=== PATIENT | female | born 1955 | race American Indian/Alaskan Native ===

== ENCOUNTER 2021-01-07 12:49 | Inpatient (IN) | payer MEDICARE ==
[2021-01-07] MEDS ORDERED: NALOXONE 2 MG/2 ML INJ IV ONE (13:22)
--- NOTE | 2021-01-07 13:54 | Emergency Department Report ---
ED Altered Mental Status HPI - General Chief Complaint: Altered Mental Status Stated Complaint: HYPERGLYCEMIA, AMS Time Seen by Provider: 01/07/21 13:03 Source: EMS Mode of arrival: Ambulatory Limitations: No Limitations - History of Present Illness Initial Comments: 65-year-old female, history of chronic back pain, COPD (O2 at night), diabetes, hypertension, presents to ED with altered mental status at approximately 4 AM this morning. Last known well time at 8:30 PM last night. Daughter states patient has been lethargic today. States at 4 AM her son went to the bathroom and noticed that his grandmother was sitting on the stool instead of in the bed. Daughter states this is unusual for her. She states all day today she has been confused, lethargic, slow to answer questions. Daughter states patient has history of chronic back pain. She normally takes hydrocodone 10/325 TID a day along with gabapentin. Daughter reports 3 days ago patient's pain management physician restarted patient on morphine BID. She also reports patient takes Am julia at night. Daughter reports that they recently returned from [place] from spring vacation on Tuesday, 3 days ago. States patient was fine while on vacation. Daughter called EMS because she thought patient's glucose may be off. Glucose is normal. Patient is lethargic. She is arousable to painful stimuli. Patient is intermittently alert. When I told the nurse that we should give Na rcan, thought patient was asleep, however she responded no. When I was speaking to the daughter about all of the medications that patient is taking, I commented that patient may be too old to handle all of these sedating medications. Again, I thought patient was asleep, however patient responded, "Too old?!" When I asked patient what year it is, she responds, "19....," then drifts back off to s lee. Patient is received 2nd dose of [employer] vaccine for COVID-19 1 week ago. Complaint: altered mental status -: This morning Severity: moderate Consistency of Symptoms: waxing and waning Context: change in medication, diabetes, COPD Associated Symptoms: weakness. denies: cough, fever/chills, nausea/vomiting, shortness of breath, diarrhea ED Review of Systems ROS: Stated complaint: HYPERGLYCEMIA, AMS Other details as noted in HPI Comment: All other systems reviewed and negative Constitutional: denies: chills, fever Respiratory: denies: cough Gastrointestinal: denies: abdominal pain, vomiting, diarrhea ED Past Medical Hx - Past Medical History Previous Medical History?: Yes Hx Hypertension: Yes Hx Arthritis: Yes Hx Asthma: Yes - Surgical History Past Surgical History?: No - Social History Smoking Status: Former Smoker Substance Use Type: None ED Physical Exam - General Limitations: No Limitations General appearance: lethargic - Head Head exam: Present: atraumatic, normocephalic - Eye Eye exam: Present: normal appearance, EOMI - ENT ENT exam: Present: mucous membranes moist - Neck Neck exam: Present: normal inspection - Respiratory Respiratory exam: Present: wheezes - Cardiovascular Cardiovascular Exam: Present: regular rate, normal rhythm - GI/Abdominal GI/Abdominal exam: Present: soft. Absent: distended, tenderness - Extremities Exam Extremities exam: Present: normal inspection - Neurological Exam Neurological exam: Present: altered - Psychiatric Psychiatric exam: Present: normal affect, normal mood - Skin Skin exam: Present: warm, dry, intact, normal color ED Course Vital Signs 01/07/21 01/07/21 01/07/21 13:21 13:38 15:56 Temperature 98.1 F Pulse Rate 77 87 Pulse Rate [ Anterior Bilateral Throughout] Respiratory 18 18 Rate Respiratory Rate [Anterior Bilateral Throughout] Blood Pressure 179/54 Blood Pressure 179/54 [Right] O2 Sat by Pulse 100 100 Oximetry 01/07/21 01/07/21 01/07/21 16:01 16:15 16:31 Temperature Pulse Rate 71 73 77 Pulse Rate [ Anterior Bilateral Throughout] Respiratory 17 17 15 Rate Respiratory Rate [Anterior Bilateral Throughout] Blood Pressure 180/71 158/68 Blood Pressure [Right] O2 Sat by Pulse 99 99 94 Oximetry 01/07/21 01/07/21 01/07/21 16:45 17:00 17:15 Temperature Pulse Rate 79 74 76 Pulse Rate [ Anterior Bilateral Throughout] Respiratory 16 17 15 Rate Respiratory Rate [Anterior Bilateral Throughout] Blood Pressure 180/71 172/77 158/68 Blood Pressure [Right] O2 Sat by Pulse 80 L 100 100 Oximetry 01/07/21 01/07/21 01/07/21 17:31 17:49 17:51 Temperature Pulse Rate 77 Pulse Rate [ 79 Anterior Bilateral Throughout] Respiratory 13 Rate Respiratory 20 Rate [Anterior Bilateral Throughout] Blood Pressure 158/68 Blood Pressure [Right] O2 Sat by Pulse 100 100 Oximetry - Lab Data Result diagrams: 01/07/21 14:14 01/07/21 14:14 Lab Results 01/07/21 01/07/21 01/07/21 Range/Units 13:19 14:14 14:14 WBC 12.6 H (4.5-11.0) K/mm3 RBC 4.49 (3.65-5.03) M/mm3 Hgb 12.5 (10.1-14.3) gm/dl Hct 39.1 (30.3-42.9) % MCV 87 (79-97) fl MCH 28 (28-32) pg MCHC 32 (30-34) % RDW 15.0 (13.2-15.2) % Plt Count 228 (140-440) K/mm3 Lymph % (Auto) 17.0 (13.4-35.0) % Nelson % (Auto) 3.9 (0.0-7.3) % Eos % (Auto) 0.1 (0.0-4.3) % Baso % (Auto) 0.5 (0.0-1.8) % Lymph # (Auto) 2.1 (1.2-5.4) K/mm3 Nelson # (Auto) 0.5 (0.0-0.8) K/mm3 Eos # (Auto) 0.0 (0.0-0.4) K/mm3 Baso # (Auto) 0.1 (0.0-0.1) K/mm3 Seg Neutrophils % 78.5 H (40.0-70.0) % Seg Neutrophils # 9.9 H (1.8-7.7) K/mm3 D-Dimer (0-234) ng/mlDDU ABG pH (7.320-7.450) POC ABG pCO2 (32.0-48.0) mmHg POC ABG pO2 (83-108) mmHg POC ABG HCO3 ABG O2 Saturation (0-100) POC ABG Base Excess ABG Hemoglobin (12.0-17.5) ABG Oxyhemoglobin (94-98) ABG Methemoglobin (0.0-1.5) ABG Sodium (136.0-145.0) mmol/L ABG Potassium (3.40-4.50) mmol/L ABG Chloride (98-107) mmol/L ABG Glucose (65-95) mg/dL Carboxyhemoglobin (0.5-1.5) FiO2 % Sodium 138 (137-145) mmol/L Potassium 4.9 (3.6-5.0) mmol/L Chloride 102.1 (98-107) mmol/L Carbon Dioxide 24 (22-30) mmol/L Anion Gap 17 mmol/L BUN 30 H (7-17) mg/dL Creatinine 1.1 (0.6-1.2) mg/dL Estimated GFR 60 ml/min BUN/Creatinine Ratio 27 % Glucose 110 H (65-100) mg/dL POC Glucose 185 H (70-105) mg/dL Calcium 9.2 (8.4-10.2) mg/dL Ferritin (10.0-200.0) ng/mL Lactate Dehydrogenase (91-180) units/L Troponin T (0.00-0.029) ng/mL C-Reactive Protein (0.00-1.30) mg/dL Arterial Blood Glucose (65-95) mg/dL Arterial Blood Ionized Calcium (4.6-5.3) mg/dL 01/07/21 01/07/21 01/07/21 Range/Units 14:14 14:17 15:39 WBC (4.5-11.0) K/mm3 RBC (3.65-5.03) M/mm3 Hgb (10.1-14.3) gm/dl Hct (30.3-42.9) % MCV (79-97) fl MCH (28-32) pg MCHC (30-34) % RDW (13.2-15.2) % Plt Count (140-440) K/mm3 Lymph % (Auto) (13.4-35.0) % Nelson % (Auto) (0.0-7.3) % Eos % (Auto) (0.0-4.3) % Baso % (Auto) (0.0-1.8) % Lymph # (Auto) (1.2-5.4) K/mm3 Nelson # (Auto) (0.0-0.8) K/mm3 Eos # (Auto) (0.0-0.4) K/mm3 Baso # (Auto) (0.0-0.1) K/mm3 Seg Neutrophils % (40.0-70.0) % Seg Neutrophils # (1.8-7.7) K/mm3 D-Dimer 724.01 H (0-234) ng/mlDDU ABG pH 7.318 L (7.320-7.450) POC ABG pCO2 54.5 H (32.0-48.0) mmHg POC ABG pO2 52.5 L (83-108) mmHg POC ABG HCO3 27.3 ABG O2 Saturation 88.3 (0-100) POC ABG Base Excess 0.3 ABG Hemoglobin 13.1 (12.0-17.5) ABG Oxyhemoglobin 83.7 L (94-98) ABG Methemoglobin 0.3 (0.0-1.5) ABG Sodium 138.0 (136.0-145.0) mmol/L ABG Potassium 4.7 H (3.40-4.50) mmol/L ABG Chloride 105.0 (98-107) mmol/L ABG Glucose 120 H (65-95) mg/dL Carboxyhemoglobin 4.9 H (0.5-1.5) FiO2 % 21.0 Sodium (137-145) mmol/L Potassium (3.6-5.0) mmol/L Chloride (98-107) mmol/L Carbon Dioxide (22-30) mmol/L Anion Gap mmol/L BUN (7-17) mg/dL Creatinine (0.6-1.2) mg/dL Estimated GFR ml/min BUN/Creatinine Ratio % Glucose (65-100) mg/dL POC Glucose (70-105) mg/dL Calcium (8.4-10.2) mg/dL Ferritin (10.0-200.0) ng/mL Lactate Dehydrogenase (91-180) units/L Troponin T < 0.010 (0.00-0.029) ng/mL C-Reactive Protein (0.00-1.30) mg/dL Arterial Blood Glucose 120 H (65-95) mg/dL Arterial Blood Ionized Calcium 4.9 (4.6-5.3) mg/dL 01/07/21 01/07/21 Range/Units 15:39 15:39 WBC (4.5-11.0) K/mm3 RBC (3.65-5.03) M/mm3 Hgb (10.1-14.3) gm/dl Hct (30.3-42.9) % MCV (79-97) fl MCH (28-32) pg MCHC (30-34) % RDW (13.2-15.2) % Plt Count (140-440) K/mm3 Lymph % (Auto) (13.4-35.0) % Nelson % (Auto) (0.0-7.3) % Eos % (Auto) (0.0-4.3) % Baso % (Auto) (0.0-1.8) % Lymph # (Auto) (1.2-5.4) K/mm3 Nelson # (Auto) (0.0-0.8) K/mm3 Eos # (Auto) (0.0-0.4) K/mm3 Baso # (Auto) (0.0-0.1) K/mm3 Seg Neutrophils % (40.0-70.0) % Seg Neutrophils # (1.8-7.7) K/mm3 D-Dimer (0-234) ng/mlDDU ABG pH (7.320-7.450) POC ABG pCO2 (32.0-48.0) mmHg POC ABG pO2 (83-108) mmHg POC ABG HCO3 ABG O2 Saturation (0-100) POC ABG Base Excess ABG Hemoglobin (12.0-17.5) ABG Oxyhemoglobin (94-98) ABG Methemoglobin (0.0-1.5) ABG Sodium (136.0-145.0) mmol/L ABG Potassium (3.40-4.50) mmol/L ABG Chloride (98-107) mmol/L ABG Glucose (65-95) mg/dL Carboxyhemoglobin (0.5-1.5) FiO2 % Sodium (137-145) mmol/L Potassium (3.6-5.0) mmol/L Chloride (98-107) mmol/L Carbon Dioxide (22-30) mmol/L Anion Gap mmol/L BUN (7-17) mg/dL Creatinine (0.6-1.2) mg/dL Estimated GFR ml/min BUN/Creatinine Ratio % Glucose (65-100) mg/dL POC Glucose (70-105) mg/dL Calcium (8.4-10.2) mg/dL Ferritin 84.1 (10.0-200.0) ng/mL Lactate Dehydrogenase 252 H (91-180) units/L Troponin T (0.00-0.029) ng/mL C-Reactive Protein 1.70 H (0.00-1.30) mg/dL Arterial Blood Glucose (65-95) mg/dL Arterial Blood Ionized Calcium (4.6-5.3) mg/dL - EKG Data -: EKG Interpreted by Me EKG shows normal: sinus rhythm, axis, intervals, QRS complexes Rate: normal Interpretation: nonspecific ST-T wave jose francisco - Radiology Data Radiology results: report reviewed, image reviewed - Medical Decision Making 65-year-old male presents to ED with altered mental status. Last known well time was last night around 8:30 PM. Daughter states patient has been lethargic all day. Thought her mental status may be related to her diabetes, so EMS was called. Accu-Chek is normal. Daughter reports patient recently restarted p.o. morphine for her chronic pain. Narcan was given here in the ED, however, no improvement in mental status. Patient is arousable, will follow commands, but quickly dozes off again. No focal neuro deficits on exam. Patient has no drift in her extremities, no facial droop present, speech is normal. ABG shows slight elevation in CO2 of 54, however it is unclear if her encephalopathy is related to this, as her encephalopathy seems somewhat out of proportion to her CO2 elevation. O2 sats is 88%. Patient placed on 2 L O2. Chest x-ray does show bilateral pneumonia. Blood cultures drawn, antibiotics given. Patient received her second COVID-19 vaccine dose last week prior to going on vacation with her family for spring. COVID-19 markers drawn, test ordered. Patient will be admitted to Dr. Johnson, hospitalist, for further management. - Differential Diagnosis CO2 narcosis, opioid overdose, UTI, pneumonia, hypoglycemia Critical care attestation.: If time is entered above; I have spent that time in minutes in the direct care of this critically ill patient, excluding procedure time. ED Disposition Clinical Impression: Acute encephalopathy, Pneumonia, Suspected COVID-19 virus infection, Acute respiratory failure with hypoxia and hypercapnia Disposition: OP ADMIT IP TO THIS HOSP Is pt being admited?: Yes Condition: Stable Time of Disposition: 16:52
--- NOTE | 2021-01-07 14:22 | XRay Report ---
Chest and oblique INDICATION: Dyspnea IMPRESSION: Severe airspace disease projects over the right mid and lower lung suspicious for pneumon ia. Left lung is grossly clear. Close follow-up recommended. Signer Name: Checo Lawton MD Signed: 01/07/2021 2:17 PM Workstation Name: [id number]
[2021-01-07 14:42] LABS: Basophils # (Auto) 0.1 K/mm3 (0.0-0.1); Basophils % (Auto) 0.5 % (0.0-1.8); Eosinophils % (Auto) 0.1 % (0.0-4.3); Hematocrit 39.1 % (30.3-42.9); Hemoglobin 12.5 gm/dl (10.1-14.3); Lymphocytes # (Auto) 2.1 K/mm3 (1.2-5.4); Mean Corpuscular HGB Conc 32 % (30-34); Mean Corpuscular Volume 87 fl (79-97); Monocytes # (Auto) 0.5 K/mm3 (0.0-0.8); Monocytes % (Auto) 3.9 % (0.0-7.3); Platelet Count 228 K/mm3 (140-440); Red Blood Count 4.49 M/mm3 (3.65-5.03)
[2021-01-07 15:10] LABS: Calcium 9.2 mg/dL (8.4-10.2)
[2021-01-07] MEDS ORDERED: cefTRIAXone/NS 1 GM/50 ML 1 GM/50 ML BAG IV ONE (15:11)
[2021-01-07] MEDS ORDERED: AZITHROMYCIN/NS 500 MG/250 ML 500 MG/250 ML BAG IV ONE (15:12)
[2021-01-07] MEDS ORDERED: dexAMETHasone 4 MG/ML VIAL IV ONE (15:12)
--- NOTE | 2021-01-07 15:59 | Cat Scan Report ---
CT HEAD WITHOUT CONTRAST INDICATION / CLINICAL INFORMATION: AMS. TECHNIQUE: Axial imaging performed from the skull apex through the skull base without the use of cont rast. Sagittal and coronal reformatted images. All CT scans at this location are performed using CT dose reduction for ALARA by means of automated exposure control. COMPARISON: None available. FINDINGS: There is moderate artifact secondary to a left ear piercing. CEREBRAL PARENCHYMA: No significant abnormality. No acute territorial infarct. HEMORRHAGE: None. EXTRA-AXIAL SPACES: Normal in size and morphology for the patient's age. VENTRICULAR SYSTEM: Normal in size and morphology for the patient's age. MIDLINE SHIFT OR HERNIATION: None. CEREBELLUM / BRAINSTEM: No significant abnormality. CALVARIUM: No significant abnormality. ORBITS: Normal as visualized. PARANASAL SINUSES / MASTOID AIR CELLS: Normal as visualized. SOFT TISSUES of HEAD: No significant abnormality. ADDITIONAL FINDINGS: None. IMPRESSION: No acute intracranial abnormality. Signer Name: Lang Moser Jr, MD Signed: 01/07/2021 3:43 PM Workstation Name: [id number]
[2021-01-07 16:09] LABS: C-Reactive Protein 1.7 mg/dL (0.00-1.30)
[2021-01-07] MEDS ORDERED: IPRATROPIUM 0.02% NEBU 2.5 ML IH ONE (16:38)
[2021-01-07] MEDS ORDERED: ALBUTEROL 2.5 MG/3 ML NEBU IH ONE (16:38)
[2021-01-07] MEDS ORDERED: ALBUTEROL 2.5 MG/3 ML NEBU IH PRN (16:52)
[2021-01-07] MEDS ORDERED: ONDANSETRON 4 MG/2 ML INJ IV PRN (16:52)
[2021-01-07 16:57] LABS: Bacteria,Urine 1+ /HPF (Negative); Bilirubin,Urine NEG (Negative); Blood,Urine NEG (Negative); Color,Urine Yellow (Yellow); Mucus,Urine FEW /HPF; Protein,Urine <15 mg/dL mg/dL (Negative); Urobilinogen,Urine < 2.0 mg/dL (<2.0); WBC,Urine < 1.0 /HPF (0.0-6.0)
--- NOTE | 2021-01-07 16:57 | History and Physical Report ---
History of Present Illness Chief complaint: She is confused and not acting like herself History of present illness: 65 YO Female with obesity hypoventilation syndrome, COPD, diabetes mellitus, hypertension, osteoarthritis, mild intermittent asthma presented to ED for evaluation. Patient is confused with diminished cognition and is unable to provide history. Patient history taken from EMS staff, ED staff, as well as patient family who was at bedside during exam and interview. As per family the patient has experienced increased confusion over the past 1 day with persistent symptoms over the same timeframe. EMS was notified and upon arrival the patient was found to be in distress and subsequently transported to [facility] for further care and evaluation of the aforementioned symptoms. The patient was seen and jay luated in the emergency department. All lab and imaging studies reviewed. The patient was found to have a pulse oximetry of 87% on room air which is consistent with acute hypoxemic respiratory failure. The patient was placed on supplemental oxygen with mild improvement in symptoms. Chest x-ray revealed bilateral pneumonia. Patient initiated on pneumonia protocol as well as coronavirus protocol in the emergency department. Patient found to have encephalopathy, systemic inflammatory response syndrome as well as super suspected coronavirus infection. Patient admitted to medical floor due to increased risk of worsening symptoms. No reports of fever, chills, chest pain, palpitations, productive cough, skin rash, recent ill contacts. Patient is fully vaccinated with [employer] vaccine for coronavirus. Patient is confused and lethargic at the time of my evaluation and is unable to provide history but has a positive gag reflex and is able to protect her airway without difficulty at this time. No prior admission for review. No medication listed at time of admission for reconciliation. Advanced care planning conducted in ED. Past History Past Medical History: arthritis, COPD, diabetes, hypertension, other (See HPI) Past Surgical History: No surgical history, Other (Reviewed) Social history: . denies: smoking, alcohol abuse, prescription drug abuse Family history: diabetes, hypertension Medications and Allergies Active Meds: Active Medications Acetaminophen (Acetaminophen 325 Mg Tab) 650 mg PO Q4H PRN PRN Reason: Pain MILD(1-3)/Fever >100.5/BURKETT Albuterol (Albuterol 2.5 Mg/3 Ml Nebu) 2.5 mg IH Q4HRT PRN PRN Reason: Shortness Of Breath Famotidine (Famotidine 20 Mg Tab) 20 mg PO BID DEANNE Ceftriaxone Sodium (Rocephin/Ns 2 Gm/100 Ml) 2 gm in 100 mls @ 200 mls/hr IV Q24H DEANNE; Protocol Azithromycin (Zithromax/Ns) 500 mg in 250 mls @ 250 mls/hr IV Q24H DEANNE; Protocol Ondansetron HCl (Ondansetron 4 Mg/2 Ml Inj) 4 mg IV Q8H PRN PRN Reason: Nausea And Vomiting Sodium Chloride (Sodium Chloride 0.9% 10 Ml Flush Syringe) 10 ml IV BID DEANNE Sodium Chloride (Sodium Chloride 0.9% 10 Ml Flush Syringe) 10 ml IV PRN PRN PRN Reason: LINE FLUSH Review of Systems ROS unobtainable: due to mental status Exam - Constitutional Vitals: Temp Pulse Resp BP Pulse Ox 98.1 F 77 15 158/68 94 01/07/21 13:21 01/07/21 16:31 01/07/21 16:31 01/07/21 16:31 01/07/21 16:31 General appearance: Present: mild distress - EENT Eyes: Present: PERRL ENT: hearing decreased - Neck Neck: Present: supple, normal ROM - Respiratory Respiratory effort: labored, accessory muscle use Respiratory: bilateral: diminished, rhonchi - Cardiovascular Heart Sounds: Present: S1 & S2. Absent: rub, click - Extremities Extremities: pulses symmetrical, No edema Peripheral Pulses: within normal limits - Abdominal General gastrointestinal: Present: soft, non-tender, non-distended, normal bowel sounds Female genitourinary: Present: normal - Integumentary Integumentary: Present: clear, dry, clammy - Musculoskeletal Musculoskeletal: generalized weakness - Psychiatric Psychiatric: no appropriate mood/affect, no intact judgment & insight, no memory intact - Neurologic Neurologic: CNII-XII intact, no focal deficits, moves all extremities, no gait normal HEART Score - HEART Score Troponin: Troponin T < 0.010 ng/mL (0.00-0.029) 01/07/21 14:14 Results - Labs CBC & Chem 7: 01/07/21 14:14 01/07/21 14:14 Labs: Abnormal lab results 01/07/21 01/07/21 01/07/21 Range/Units 13:19 14:14 14:14 WBC 12.6 H (4.5-11.0) K/mm3 Seg Neutrophils % 78.5 H (40.0-70.0) % Seg Neutrophils # 9.9 H (1.8-7.7) K/mm3 D-Dimer (0-234) ng/mlDDU ABG pH (7.320-7.450) POC ABG pCO2 (32.0-48.0) mmHg POC ABG pO2 (83-108) mmHg ABG Oxyhemoglobin (94-98) ABG Potassium (3.40-4.50) mmol/L ABG Glucose (65-95) mg/dL Carboxyhemoglobin (0.5-1.5) BUN 30 H (7-17) mg/dL Glucose 110 H (65-100) mg/dL POC Glucose 185 H (70-105) mg/dL Lactate Dehydrogenase (91-180) units/L C-Reactive Protein (0.00-1.30) mg/dL Arterial Blood Glucose (65-95) mg/dL 01/07/21 01/07/21 01/07/21 Range/Units 14:17 15:39 15:39 WBC (4.5-11.0) K/mm3 Seg Neutrophils % (40.0-70.0) % Seg Neutrophils # (1.8-7.7) K/mm3 D-Dimer 724.01 H (0-234) ng/mlDDU ABG pH 7.318 L (7.320-7.450) POC ABG pCO2 54.5 H (32.0-48.0) mmHg POC ABG pO2 52.5 L (83-108) mmHg ABG Oxyhemoglobin 83.7 L (94-98) ABG Potassium 4.7 H (3.40-4.50) mmol/L ABG Glucose 120 H (65-95) mg/dL Carboxyhemoglobin 4.9 H (0.5-1.5) BUN (7-17) mg/dL Glucose (65-100) mg/dL POC Glucose (70-105) mg/dL Lactate Dehydrogenase 252 H (91-180) units/L C-Reactive Protein 1.70 H (0.00-1.30) mg/dL Arterial Blood Glucose 120 H (65-95) mg/dL Assessment and Plan - Patient Problems (1) Acute respiratory failure with hypoxia and hypercapnia Current Visit: Yes Status: Acute Plan to address problem: Chest x-ray, supplemental oxygen, nebulizer therapy, pulse oximetry, prone positioning while in bed, (2) Acute encephalopathy Current Visit: Yes Status: Acute Plan to address problem: CT head, neuro check, seizure precautions, aspiration precautions, supportive care. Fall precautions. (3) Obesity hypoventilation syndrome Current Visit: Yes Status: Acute Plan to address problem: Balanced diet, increase physical activity at discharge, outpatient pulmonary follow-up for sleep study. (4) Systemic inflammatory response syndrome Current Visit: Yes Status: Acute Plan to address problem: CBC, CMP, chest x-ray, urinalysis, empiric IV antibiotic therapy, supportive care. Repeat CBC in a.m. (5) Pneumonia Current Visit: Yes Status: Acute Plan to address problem: Pneumonia protocol: Chest x-ray, CBC, CMP, IV antibiotic therapy, supplemental oxygen, pulse oximetry, nebulizer therapy, blood cultures. (6) Suspected COVID-19 virus infection Current Visit: Yes Status: Acute Plan to address problem: Coronavirus protocol: Contact precautions, isolation precautions, IV antibiotic therapy, IV steroid therapy, vitamin C therapy vitamin D therapy, zinc therapy, (7) DVT prophylaxis Current Visit: Yes Status: Acute Plan to address problem: SCD to bilateral lower extremities while in bed, prophylactic anticoagulation (8) Advance care planning Current Visit: Yes Status: Acute Plan to address problem: Disease education conducted, care plan discussed, prognosis discussed, diagnoses discussed, patient is full code, patient family acknowledges understanding and agreement with care plan, +30 minutes.
[2021-01-07] MEDS ORDERED: AZITHROMYCIN/NS 500 MG/250 ML 500 MG/250 ML BAG IV SCH (17:00)
[2021-01-07] MEDS: cefTRIAXone/NS 2 GM/100 ML 2 GM/100 ML BAG IV SCH (20:15)
[2021-01-07] MEDS: FAMOTIDINE 20 MG TAB PO SCH (23:21)
[2021-01-07] MEDS: methylPREDNISolone Sod Succinate 40 MG/1 ML INJ IV SCH (23:21)
[2021-01-07] MEDS: ZINC SULFATE 220 MG CAP PO SCH (23:21)
[2021-01-07] MEDS: HEPARIN 5,000 UNIT/1 ML VIAL SUB-Q SCH (23:21)
[2021-01-07] MEDS: ASCORBIC ACID 500 MG TAB PO SCH (23:21)
[2021-01-08] MEDS ORDERED: hydrALAZINE 20 MG/1 ML INJ IV ONE ×2 (06:25→16:05)
[2021-01-08] MEDS: methylPREDNISolone Sod Succinate 40 MG/1 ML INJ IV SCH ×3 (06:29→23:23)
[2021-01-08] MEDS: ACETAMINOPHEN 325 MG TAB PO PRN ×2 (06:37→23:23)
--- NOTE | 2021-01-08 08:30 | Progress Note ---
Hospitalist Physical - Constitutional Vitals: Temp Pulse Resp BP Pulse Ox 98.5 F 65 18 178/68 97 01/08/21 04:47 01/08/21 04:47 01/08/21 04:47 01/08/21 04:47 01/08/21 04:47 General appearance: Present: mild distress HEART Score - HEART Score Troponin: Troponin T < 0.010 ng/mL (0.00-0.029) 01/07/21 14:14 Results - Labs CBC & Chem 7: 01/07/21 14:14 01/07/21 14:14 Labs: Laboratory Last Values WBC 12.6 K/mm3 (4.5-11.0) H 01/07/21 14:14 RBC 4.49 M/mm3 (3.65-5.03) 01/07/21 14:14 Hgb 12.5 gm/dl (10.1-14.3) 01/07/21 14:14 Hct 39.1 % (30.3-42.9) 01/07/21 14:14 MCV 87 fl (79-97) 01/07/21 14:14 MCH 28 pg (28-32) 01/07/21 14:14 MCHC 32 % (30-34) 01/07/21 14:14 RDW 15.0 % (13.2-15.2) 01/07/21 14:14 Plt Count 228 K/mm3 (140-440) 01/07/21 14:14 Lymph % (Auto) 17.0 % (13.4-35.0) 01/07/21 14:14 [place] % (Auto) 3.9 % (0.0-7.3) 01/07/21 14:14 Eos % (Auto) 0.1 % (0.0-4.3) 01/07/21 14:14 Baso % (Auto) 0.5 % (0.0-1.8) 01/07/21 14:14 Lymph # (Auto) 2.1 K/mm3 (1.2-5.4) 01/07/21 14:14 [place] # (Auto) 0.5 K/mm3 (0.0-0.8) 01/07/21 14:14 Eos # (Auto) 0.0 K/mm3 (0.0-0.4) 01/07/21 14:14 Baso # (Auto) 0.1 K/mm3 (0.0-0.1) 01/07/21 14:14 Seg Neutrophils % 78.5 % (40.0-70.0) H 01/07/21 14:14 Seg Neutrophils # 9.9 K/mm3 (1.8-7.7) H 01/07/21 14:14 D-Dimer 724.01 ng/mlDDU (0-234) H 01/07/21 15:39 ABG pH 7.318 (7.320-7.450) L 01/07/21 14:17 POC ABG pCO2 54.5 mmHg (32.0-48.0) H 01/07/21 14:17 POC ABG pO2 52.5 mmHg (83-108) L 01/07/21 14:17 POC ABG HCO3 27.3 01/07/21 14:17 ABG O2 Saturation 88.3 (0-100) 01/07/21 14:17 POC ABG Base Excess 0.3 01/07/21 14:17 ABG Hemoglobin 13.1 (12.0-17.5) 01/07/21 14:17 ABG Oxyhemoglobin 83.7 (94-98) L 01/07/21 14:17 ABG Methemoglobin 0.3 (0.0-1.5) 01/07/21 14:17 ABG Sodium 138.0 mmol/L (136.0-145.0) 01/07/21 14:17 ABG Potassium 4.7 mmol/L (3.40-4.50) H 01/07/21 14:17 ABG Chloride 105.0 mmol/L (98-107) 01/07/21 14:17 ABG Glucose 120 mg/dL (65-95) H 01/07/21 14:17 Carboxyhemoglobin 4.9 (0.5-1.5) H 01/07/21 14:17 FiO2 % 21.0 01/07/21 14:17 Sodium 138 mmol/L (137-145) 01/07/21 14:14 Potassium 4.9 mmol/L (3.6-5.0) 01/07/21 14:14 Chloride 102.1 mmol/L (98-107) 01/07/21 14:14 Carbon Dioxide 24 mmol/L (22-30) 01/07/21 14:14 Anion Gap 17 mmol/L 01/07/21 14:14 BUN 30 mg/dL (7-17) H 01/07/21 14:14 Creatinine 1.1 mg/dL (0.6-1.2) 01/07/21 14:14 Estimated GFR 60 ml/min 01/07/21 14:14 BUN/Creatinine Ratio 27 % 01/07/21 14:14 Glucose 110 mg/dL (65-100) H 01/07/21 14:14 POC Glucose 147 mg/dL (70-105) H 01/07/21 22:55 Calcium 9.2 mg/dL (8.4-10.2) 01/07/21 14:14 Ferritin 84.1 ng/mL (10.0-200.0) 01/07/21 15:39 Lactate Dehydrogenase 252 units/L (91-180) H 01/07/21 15:39 Troponin T < 0.010 ng/mL (0.00-0.029) 01/07/21 14:14 C-Reactive Protein 1.70 mg/dL (0.00-1.30) H 01/07/21 15:39 Arterial Blood Glucose 120 mg/dL (65-95) H 01/07/21 14:17 Arterial Blood Ionized Calcium 4.9 mg/dL (4.6-5.3) 01/07/21 14:17 Urine Color Yellow (Yellow) 01/07/21 Unknown Urine Turbidity Clear (Clear) 01/07/21 Unknown Urine pH 5.0 (5.0-7.0) 01/07/21 Unknown Ur Specific [place] 1.017 (1.003-1.030) 01/07/21 Unknown Urine Protein <15 mg/dl mg/dL (Negative) 01/07/21 Unknown Urine Glucose (UA) Neg mg/dL (Negative) 01/07/21 Unknown Urine Ketones Neg mg/dL (Negative) 01/07/21 Unknown Urine Blood Neg (Negative) 01/07/21 Unknown Urine Nitrite Neg (Negative) 01/07/21 Unknown Urine Bilirubin Neg (Negative) 01/07/21 Unknown Urine Urobilinogen < 2.0 mg/dL (<2.0) 01/07/21 Unknown Ur Leukocyte Esterase Neg (Negative) 01/07/21 Unknown Urine WBC (Auto) < 1.0 /HPF (0.0-6.0) 01/07/21 Unknown Urine RBC (Auto) 2.0 /HPF (0.0-6.0) 01/07/21 Unknown U Epithel Cells (Auto) 1.0 /HPF (0-13.0) 01/07/21 Unknown Urine Bacteria (Auto) 1+ /HPF (Negative) 01/07/21 Unknown Urine Mucus Few /HPF 01/07/21 Unknown Microbiology: Microbiology 01/07/21 15:39 Peripheral/Venous Blood Culture - Preliminary Culture in Progress 01/07/21 15:46 Peripheral/Venous Blood Culture - Preliminary Culture in Progress [place]/IV: Voiding Method Incontinent Active Medications - Current Medications Current Medications: Generic Name Dose Route Start Last Admin Trade Name Freq PRN Reason Stop Dose Admin Acetaminophen 650 mg 01/07/21 16:52 01/08/21 06:37 Acetaminophen 325 Mg Tab PO 650 mg Q4H PRN Administration Pain MILD(1-3)/Fever >100.5/BURKETT Albuterol 2.5 mg 01/07/21 16:52 Albuterol 2.5 Mg/3 Ml Nebu IH Q4HRT PRN Shortness Of Breath Ascorbic Acid 500 mg 01/07/21 22:00 01/07/21 23:21 Ascorbic Acid 500 Mg Tab PO 500 mg BID DEANNE Administration Azithromycin 500 mg 01/08/21 18:00 Azithromycin 250 Mg Tab PO 01/11/21 18:01 QPM DEANNE Cholecalciferol 1,000 unit 01/08/21 10:00 Cholecalciferol (Vit D3) 1000 Unit (25 Mcg) Tab PO QDAY DEANNE Famotidine 20 mg 01/07/21 22:00 01/07/21 23:21 Famotidine 20 Mg Tab PO 20 mg BID DEANNE Administration Heparin Sodium (Porcine) 5,000 unit 01/07/21 22:00 01/07/21 23:21 Heparin 5,000 Unit/1 Ml Vial SUB-Q 5,000 unit Q12HR DEANNE Administration Ceftriaxone Sodium 2 gm in 100 mls @ 200 mls/hr 01/07/21 17:00 01/07/21 20:15 Rocephin/Ns 2 Gm/100 Ml IV Not Given Q24H [facility] Protocol Methylprednisolone Sodium Succinate 40 mg 01/07/21 22:00 01/08/21 06:29 Methylprednisolone Sod Succinate 40 Mg/1 Ml Inj IV 40 mg Q8HR DEANNE Administration Ondansetron HCl 4 mg 01/07/21 16:52 Ondansetron 4 Mg/2 Ml Inj IV Q8H PRN Nausea And Vomiting Sodium Chloride 10 ml 01/07/21 22:00 01/07/21 23:22 Sodium Chloride 0.9% 10 Ml Flush Syringe IV 10 ml BID DEANNE Administration Sodium Chloride 10 ml 01/07/21 16:52 Sodium Chloride 0.9% 10 Ml Flush Syringe IV PRN PRN LINE FLUSH Zinc Sulfate 220 mg 01/07/21 22:00 01/07/21 23:21 Zinc Sulfate 220 Mg Cap PO 220 mg BID DEANNE Administration
--- NOTE | 2021-01-08 08:33 | Progress Note ---
Assessment and Plan Assessment and plan: --COVID-19 test negative -- Acute hypoxic , hypercapnic respiratory failure Current Visit: Yes Status: Acute Plan to address problem: Continue supplemental oxygen, treat the underlying cause BiPAP as needed --Acute metabolic encephalopathy Current Visit: Yes Status: Acute Plan to address problem: Multifactorial, treat underlying cause Neurochecks and supportive care If no improvement in altered level of consciousness We will consult neurology, will get MRI --Obesity hypoventilation syndrome Current Visit: Yes Status: Acute Plan to address problem: Oxygen, titrate O2 sats to more than 90% Pulmonary consult, CPAP BiPAP at night/and as needed --Systemic inflammatory response syndrome Current Visit: Yes Status: Acute Plan to address problem: Empiric antibiotics, follow cultures -- Pneumonia right-sided Current Visit: Yes Status: Acute Plan to address problem: Continue empiric antibiotics, follow cultures Supportive care --DVT prophylaxis Current Visit: Yes Status: Acute Plan to address problem: SCD and heparin --Advance care planning Current Visit: Yes Status: Acute Plan to address problem: Plan of care reviewed with patient and her nurse Closely monitor the patient and adjust management as needed 01/08/2021; patient is severely encephalopathic CT head negative, elevated D-dimers, DVT negative, check CTA chest Get her home medications list and resume Pulmonary consulted History Interval history: I have seen and examined the patient at the bedside this morning Patient's chart and medications reviewed Patient is severely confused, agitated Not communicating appropriately in mild distress Vital signs reviewed Hospitalist Physical - Constitutional Vitals: Temp Pulse Resp BP Pulse Ox 98.5 F 65 18 178/68 97 01/08/21 04:47 01/08/21 04:47 01/08/21 04:47 01/08/21 04:47 01/08/21 04:47 General appearance: Present: mild distress, well-nourished, obese (Morbid obesity) - EENT Eyes: Present: PERRL, EOM intact - Neck Neck: Present: supple, normal ROM - Respiratory Respiratory effort: normal Respiratory: bilateral: diminished, negative: rales, rhonchi, wheezing - Cardiovascular Rhythm: regular Heart Sounds: Present: S1 & S2 - Extremities Extremities: no ischemia Extremity abnormal: edema - Abdominal General gastrointestinal: soft, non-tender, non-distended, normal bowel sounds - Integumentary Integumentary: Present: clear, warm - Psychiatric Psychiatric: agitated, other (Confused nonverbal) - Neurologic Neurologic: other (Confused nonverbal) HEART Score - HEART Score Troponin: Troponin T < 0.010 ng/mL (0.00-0.029) 01/07/21 14:14 Results - Labs CBC & Chem 7: 01/08/21 08:32 01/08/21 08:32 Labs: Laboratory Last Values WBC 12.6 K/mm3 (4.5-11.0) H 01/07/21 14:14 RBC 4.49 M/mm3 (3.65-5.03) 01/07/21 14:14 Hgb 12.5 gm/dl (10.1-14.3) 01/07/21 14:14 Hct 39.1 % (30.3-42.9) 01/07/21 14:14 MCV 87 fl (79-97) 01/07/21 14:14 MCH 28 pg (28-32) 01/07/21 14:14 MCHC 32 % (30-34) 01/07/21 14:14 RDW 15.0 % (13.2-15.2) 01/07/21 14:14 Plt Count 228 K/mm3 (140-440) 01/07/21 14:14 Lymph % (Auto) 17.0 % (13.4-35.0) 01/07/21 14:14 [place] % (Auto) 3.9 % (0.0-7.3) 01/07/21 14:14 Eos % (Auto) 0.1 % (0.0-4.3) 01/07/21 14:14 Baso % (Auto) 0.5 % (0.0-1.8) 01/07/21 14:14 Lymph # (Auto) 2.1 K/mm3 (1.2-5.4) 01/07/21 14:14 [place] # (Auto) 0.5 K/mm3 (0.0-0.8) 01/07/21 14:14 Eos # (Auto) 0.0 K/mm3 (0.0-0.4) 01/07/21 14:14 Baso # (Auto) 0.1 K/mm3 (0.0-0.1) 01/07/21 14:14 Seg Neutrophils % 78.5 % (40.0-70.0) H 01/07/21 14:14 Seg Neutrophils # 9.9 K/mm3 (1.8-7.7) H 01/07/21 14:14 D-Dimer 724.01 ng/mlDDU (0-234) H 01/07/21 15:39 ABG pH 7.318 (7.320-7.450) L 01/07/21 14:17 POC ABG pCO2 54.5 mmHg (32.0-48.0) H 01/07/21 14:17 POC ABG pO2 52.5 mmHg (83-108) L 01/07/21 14:17 POC ABG HCO3 27.3 01/07/21 14:17 ABG O2 Saturation 88.3 (0-100) 01/07/21 14:17 POC ABG Base Excess 0.3 01/07/21 14:17 ABG Hemoglobin 13.1 (12.0-17.5) 01/07/21 14:17 ABG Oxyhemoglobin 83.7 (94-98) L 01/07/21 14:17 ABG Methemoglobin 0.3 (0.0-1.5) 01/07/21 14:17 ABG Sodium 138.0 mmol/L (136.0-145.0) 01/07/21 14:17 ABG Potassium 4.7 mmol/L (3.40-4.50) H 01/07/21 14:17 ABG Chloride 105.0 mmol/L (98-107) 01/07/21 14:17 ABG Glucose 120 mg/dL (65-95) H 01/07/21 14:17 Carboxyhemoglobin 4.9 (0.5-1.5) H 01/07/21 14:17 FiO2 % 21.0 01/07/21 14:17 Sodium 138 mmol/L (137-145) 01/07/21 14:14 Potassium 4.9 mmol/L (3.6-5.0) 01/07/21 14:14 Chloride 102.1 mmol/L (98-107) 01/07/21 14:14 Carbon Dioxide 24 mmol/L (22-30) 01/07/21 14:14 Anion Gap 17 mmol/L 01/07/21 14:14 BUN 30 mg/dL (7-17) H 01/07/21 14:14 Creatinine 1.1 mg/dL (0.6-1.2) 01/07/21 14:14 Estimated GFR 60 ml/min 01/07/21 14:14 BUN/Creatinine Ratio 27 % 01/07/21 14:14 Glucose 110 mg/dL (65-100) H 01/07/21 14:14 POC Glucose 147 mg/dL (70-105) H 01/07/21 22:55 Calcium 9.2 mg/dL (8.4-10.2) 01/07/21 14:14 Ferritin 84.1 ng/mL (10.0-200.0) 01/07/21 15:39 Lactate Dehydrogenase 252 units/L (91-180) H 01/07/21 15:39 Troponin T < 0.010 ng/mL (0.00-0.029) 01/07/21 14:14 C-Reactive Protein 1.70 mg/dL (0.00-1.30) H 01/07/21 15:39 Arterial Blood Glucose 120 mg/dL (65-95) H 01/07/21 14:17 Arterial Blood Ionized Calcium 4.9 mg/dL (4.6-5.3) 01/07/21 14:17 Urine Color Yellow (Yellow) 01/07/21 Unknown Urine Turbidity Clear (Clear) 01/07/21 Unknown Urine pH 5.0 (5.0-7.0) 01/07/21 Unknown Ur Specific [place] 1.017 (1.003-1.030) 01/07/21 Unknown Urine Protein <15 mg/dl mg/dL (Negative) 01/07/21 Unknown Urine Glucose (UA) Neg mg/dL (Negative) 01/07/21 Unknown Urine Ketones Neg mg/dL (Negative) 01/07/21 Unknown Urine Blood Neg (Negative) 01/07/21 Unknown Urine Nitrite Neg (Negative) 01/07/21 Unknown Urine Bilirubin Neg (Negative) 01/07/21 Unknown Urine Urobilinogen < 2.0 mg/dL (<2.0) 01/07/21 Unknown Ur Leukocyte Esterase Neg (Negative) 01/07/21 Unknown Urine WBC (Auto) < 1.0 /HPF (0.0-6.0) 01/07/21 Unknown Urine RBC (Auto) 2.0 /HPF (0.0-6.0) 01/07/21 Unknown U Epithel Cells (Auto) 1.0 /HPF (0-13.0) 01/07/21 Unknown Urine Bacteria (Auto) 1+ /HPF (Negative) 01/07/21 Unknown Urine Mucus Few /HPF 01/07/21 Unknown Microbiology: Microbiology 01/07/21 15:39 Peripheral/Venous Blood Culture - Preliminary Culture in Progress 01/07/21 15:46 Peripheral/Venous Blood Culture - Preliminary Culture in Progress [place]/IV: Voiding Method Incontinent Active Medications - Current Medications Current Medications: Generic Name Dose Route Start Last Admin Trade Name Freq PRN Reason Stop Dose Admin Acetaminophen 650 mg 01/07/21 16:52 01/08/21 06:37 Acetaminophen 325 Mg Tab PO 650 mg Q4H PRN Administration Pain MILD(1-3)/Fever >100.5/BURKETT Albuterol 2.5 mg 01/07/21 16:52 Albuterol 2.5 Mg/3 Ml Nebu IH Q4HRT PRN Shortness Of Breath Ascorbic Acid 500 mg 01/07/21 22:00 01/07/21 23:21 Ascorbic Acid 500 Mg Tab PO 500 mg BID DEANNE Administration Azithromycin 500 mg 01/08/21 18:00 Azithromycin 250 Mg Tab PO 01/11/21 18:01 QPM DEANNE Cholecalciferol 1,000 unit 01/08/21 10:00 Cholecalciferol (Vit D3) 1000 Unit (25 Mcg) Tab PO QDAY DEANNE Famotidine 20 mg 01/07/21 22:00 01/07/21 23:21 Famotidine 20 Mg Tab PO 20 mg BID DEANNE Administration Heparin Sodium (Porcine) 5,000 unit 01/07/21 22:00 01/07/21 23:21 Heparin 5,000 Unit/1 Ml Vial SUB-Q 5,000 unit Q12HR DEANNE Administration Ceftriaxone Sodium 2 gm in 100 mls @ 200 mls/hr 01/07/21 17:00 01/07/21 20:15 Rocephin/Ns 2 Gm/100 Ml IV Not Given Q24H [facility] [place] Protocol Methylprednisolone Sodium Succinate 40 mg 01/07/21 22:00 01/08/21 06:29 Methylprednisolone Sod Succinate 40 Mg/1 Ml Inj IV 40 mg Q8HR DEANNE Administration Ondansetron HCl 4 mg 01/07/21 16:52 Ondansetron 4 Mg/2 Ml Inj IV Q8H PRN Nausea And Vomiting Sodium Chloride 10 ml 01/07/21 22:00 01/07/21 23:22 Sodium Chloride 0.9% 10 Ml Flush Syringe IV 10 ml BID DEANNE Administration Sodium Chloride 10 ml 01/07/21 16:52 Sodium Chloride 0.9% 10 Ml Flush Syringe IV PRN PRN LINE FLUSH Zinc Sulfate 220 mg 01/07/21 22:00 01/07/21 23:21 Zinc Sulfate 220 Mg Cap PO 220 mg BID DEANNE Administration
[2021-01-08 10:09] LABS: Basophils % (Auto) 0.3 % (0.0-1.8); Hematocrit 37.9 % (30.3-42.9); Hemoglobin 12.1 gm/dl (10.1-14.3); Lymphocytes # (Auto) 1.8 K/mm3 (1.2-5.4); Lymphocytes % (Auto) 17.7 % (13.4-35.0); Mean Corpuscular HGB Conc 32 % (30-34); Mean Corpuscular Volume 85 fl (79-97); Monocytes # (Auto) 0.3 K/mm3 (0.0-0.8); Monocytes % (Auto) 2.5 % (0.0-7.3); Platelet Count 235 K/mm3 (140-440); Red Blood Count 4.48 M/mm3 (3.65-5.03); Red Cell Distribution Width 14.5 % (13.2-15.2)
[2021-01-08 10:16] LABS: Blood Urea Nitrogen 25 mg/dL (7-17); Hemolysis Index 12
[2021-01-08 10:27] LABS: BUN/Creatinine Ratio 36
[2021-01-08] MEDS: FAMOTIDINE 20 MG TAB PO SCH ×2 (11:02→23:23)
[2021-01-08] MEDS: CHOLECALCIFEROL (VIT D3) 1000 UNIT (25 mcg) TAB PO SCH (11:02)
[2021-01-08] MEDS: ZINC SULFATE 220 MG CAP PO SCH ×2 (11:02→23:23)
[2021-01-08] MEDS: HEPARIN 5,000 UNIT/1 ML VIAL SUB-Q SCH ×2 (11:03→23:23)
[2021-01-08] MEDS: ASCORBIC ACID 500 MG TAB PO SCH ×2 (11:03→23:23)
--- NOTE | 2021-01-08 11:44 | Electrocardiograph Report ---
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
[2021-01-08 12:51] LABS: Alanine Aminotransferase 14 units/L (7-56); Albumin 3.8 g/dL (3.9-5)
[2021-01-08 12:55] LABS: Bilirubin,Direct < 0.2 mg/dL (0-0.2)
--- NOTE | 2021-01-08 13:19 | Vascular Lab Report ---
DUPLEX DOPPLER LOWER EXTREMITY VEINS, BILATERAL INDICATION / CLINICAL INFORMATION: Elevated D-dimers/possible Covid/evaluate for DVT. Respiratory failure. TECHNIQUE: Duplex doppler imaging was performed through the veins of both lower extremities using venous isabelle lorenzo and other maneuvers. COMPARISON: None available. FINDINGS: RIGHT COMMON FEMORAL VEIN: Negative. RIGHT FEMORAL VEIN: Negative. RIGHT POPLITEAL VEIN: Negative. RIGHT CALF VEINS: Negative. LEFT COMMON FEMORAL VEIN: Negative. LEFT FEMORAL VEIN: Negative. LEFT POPLITEAL VEIN: Negative. LEFT CALF VEINS: Negative. ADDITIONAL FINDINGS: None. IMPRESSION: 1. No sonographic evidence for DVT in either lower extremity. Signer Name: Tj Martinez MD Signed: 01/08/2021 12:27 PM Workstation Name: [id number]
[2021-01-08] MEDS ORDERED: HALOPERIDOL LACTATE 5 MG/1 ML INJ IM PRN (13:35)
[2021-01-08] MEDS: AZITHROMYCIN 250 MG TAB PO SCH (17:10)
--- NOTE | 2021-01-08 18:47 | Cat Scan Report ---
CTA CHEST WITH CONTRAST INDICATION / CLINICAL INFORMATION: Elevated D-dimers/hypoxia/evaluate for PE. TECHNIQUE: Axial CT images were obtained through the chest after injection of Omnipaque 350, 100 cc I V contrast. 3 plane MIP and/or 3D reconstructions were produced. All CT scans at this location are pe rformed using CT dose reduction for ALARA by means of automated exposure control. COMPARISON: None available. FINDINGS: PULMONARY ARTERIES: No pulmonary emboli. THORACIC AORTA: No significant abnormality. HEART: Enlarged. CORONARY ARTERY CALCIFICATION: Moderate.. MEDIASTINUM / LA: No adenopathy at the mediastinum and la. The largest node at the right paratrac heal region measures 2.7 x 1.8 cm. A small adjacent nodule measures 4 mm. PLEURA: No pleural effusion. No pneumothorax. LUNGS: Mild/moderate interstitial disease greatest at the upper zones and superior segments of the lo wer lobes. There is underlying emphysema. A more nodular area of consolidation is seen at the right u pper lobe laterally measuring 1.8 cm (series 2, image 37). ADDITIONAL FINDINGS: None. UPPER ABDOMEN: No acute findings. SKELETAL STRUCTURES: No significant osseous abnormality. IMPRESSION: 1. No CT evidence for pulmonary embolism. 2. Underlying interstitial disease. It is uncertain if this is an acute or chronic process. There is moderate underlying emphysema. 3. Nodular area of infiltrate at the right upper lobe laterally. Either short-term follow-up CT chest in 3 months or PET/CT evaluation is recommended. 4. Mediastinal/hilar adenopathy of uncertain etiology. Signer Name: Eliecer Hoover MD Signed: 01/08/2021 6:42 PM Workstation Name: [id number]
[2021-01-08] MEDS: cefTRIAXone/NS 2 GM/100 ML 2 GM/100 ML BAG IV SCH (18:48)
[2021-01-08] MEDS: hydrALAZINE 25 MG TAB PO SCH (23:23)
[2021-01-09] MEDS: hydrALAZINE 25 MG TAB PO SCH ×3 (05:45→22:00)
[2021-01-09] MEDS: ACETAMINOPHEN 325 MG TAB PO PRN (05:45)
[2021-01-09] MEDS: methylPREDNISolone Sod Succinate 40 MG/1 ML INJ IV SCH ×3 (05:45→22:00)
[2021-01-09 07:51] LABS: Basophils % (Auto) 0.4 % (0.0-1.8); Hematocrit 38.6 % (30.3-42.9); Hemoglobin 12.7 gm/dl (10.1-14.3); Lymphocytes # (Auto) 1.7 K/mm3 (1.2-5.4); Mean Corpuscular HGB Conc 33 % (30-34); Mean Corpuscular Volume 84 fl (79-97); Monocytes # (Auto) 0.4 K/mm3 (0.0-0.8); Monocytes % (Auto) 2.8 % (0.0-7.3); Platelet Count 244 K/mm3 (140-440); Red Blood Count 4.59 M/mm3 (3.65-5.03); Red Cell Distribution Width 14.2 % (13.2-15.2)
[2021-01-09 08:12] LABS: Blood Urea Nitrogen 22 mg/dL (7-17); Calcium 9.2 mg/dL (8.4-10.2); Hemolysis Index 1
[2021-01-09 08:15] LABS: BUN/Creatinine Ratio 31
[2021-01-09] MEDS: ZINC SULFATE 220 MG CAP PO SCH ×2 (09:53→22:00)
[2021-01-09] MEDS: HEPARIN 5,000 UNIT/1 ML VIAL SUB-Q SCH ×2 (09:54→22:00)
[2021-01-09] MEDS: CHOLECALCIFEROL (VIT D3) 1000 UNIT (25 mcg) TAB PO SCH (09:54)
[2021-01-09] MEDS: ASCORBIC ACID 500 MG TAB PO SCH ×2 (09:54→22:00)
[2021-01-09] MEDS: FAMOTIDINE 20 MG TAB PO SCH ×2 (09:54→22:00)
[2021-01-09] MEDS: INSULIN LISPRO 100 UNIT/ML SUB-Q SCH ×5 (09:59→22:00)
--- NOTE | 2021-01-09 16:07 | Consultation ---
History of Present Illness Consult date: 01/09/21 Requesting physician: TSERING RAZO Reason for consult: other (Acute Hypoxemic & Hypercapnic Respiratory Failure) History of present illness: PULMONARY/CCM CONSULT NOTE (Full dictation # [id number]) Please see dictated notes for full details Past History Past Medical History: arthritis, COPD, diabetes, hypertension, other (See HPI) Past Surgical History: No surgical history, Other (Reviewed) Social history: . denies: smoking, alcohol abuse, prescription drug abuse Family history: diabetes, hypertension Medications and Allergies Allergies Allergy/AdvReac Type Severity Reaction Status Date / Time No Known Allergies Allergy Verified 01/07/21 20:18 Active Meds: Active Medications Acetaminophen (Acetaminophen 325 Mg Tab) 650 mg PO Q4H PRN PRN Reason: Pain MILD(1-3)/Fever >100.5/BURKETT Last Admin: 01/09/21 05:45 Dose: 650 mg Documented by: Albuterol (Albuterol 2.5 Mg/3 Ml Nebu) 2.5 mg IH Q4HRT PRN PRN Reason: Shortness Of Breath Ascorbic Acid (Ascorbic Acid 500 Mg Tab) 500 mg PO BID [facility] Last Admin: 01/09/21 09:54 Dose: 500 mg Documented by: Azithromycin (Azithromycin 250 Mg Tab) 500 mg PO QPM [facility] Stop: 01/11/21 18:01 Last Admin: 01/08/21 17:10 Dose: 500 mg Documented by: Cholecalciferol (Cholecalciferol (Vit D3) 1000 Unit (25 Mcg) Tab) 1,000 unit PO QDAY [facility] Last Admin: 01/09/21 09:54 Dose: 1,000 unit Documented by: Famotidine (Famotidine 20 Mg Tab) 20 mg PO BID [facility] Last Admin: 01/09/21 09:54 Dose: 20 mg Documented by: Haloperidol Lactate (Haloperidol Lactate 5 Mg/1 Ml Inj) 2 mg IM Q6H PRN PRN Reason: Agitation Last Admin: 01/09/21 09:59 Dose: 2 mg Documented by: Heparin Sodium (Porcine) (Heparin 5,000 Unit/1 Ml Vial) 5,000 unit SUB-Q Q12HR [facility] Last Admin: 01/09/21 09:54 Dose: 5,000 unit Documented by: Hydralazine HCl (Hydralazine 25 Mg Tab) 50 mg PO Q8HR [facility] Last Admin: 01/09/21 15:14 Dose: 50 mg Documented by: Hydralazine HCl (Hydralazine 20 Mg/1 Ml Inj) 10 mg IV Q4HR PRN PRN Reason: Hypertension Ceftriaxone Sodium (Rocephin/Ns 2 Gm/100 Ml) 2 gm in 100 mls @ 200 mls/hr IV Q24H [facility]; Protocol Stop: 01/11/21 23:59 Last Admin: 01/08/21 18:48 Dose: 200 mls/hr Documented by: Insulin Human Lispro (Insulin Lispro 100 Unit/Ml) 0 unit SUB-Q ACHS [facility]; Protocol Last Admin: 01/09/21 12:07 Dose: 4 unit Documented by: Methylprednisolone Sodium Succinate (Methylprednisolone Sod Succinate 40 Mg/1 Ml Inj) 40 mg IV Q8HR [facility] Last Admin: 01/09/21 15:15 Dose: 40 mg Documented by: Ondansetron HCl (Ondansetron 4 Mg/2 Ml Inj) 4 mg IV Q8H PRN PRN Reason: Nausea And Vomiting Sodium Chloride (Sodium Chloride 0.9% 10 Ml Flush Syringe) 10 ml IV BID [facility] Last Admin: 01/09/21 09:54 Dose: 10 ml Documented by: Sodium Chloride (Sodium Chloride 0.9% 10 Ml Flush Syringe) 10 ml IV PRN PRN PRN Reason: LINE FLUSH Zinc Sulfate (Zinc Sulfate 220 Mg Cap) 220 mg PO BID [facility] Last Admin: 01/09/21 09:53 Dose: 220 mg Documented by: Physical Examination Vital signs: Vital Signs Temp Pulse Resp BP Pulse Ox 98.1 F 75 18 179/54 100 01/07/21 13:21 01/07/21 13:21 01/07/21 13:21 01/07/21 13:21 01/07/21 13:21 Results - Laboratory Findings CBC and BMP: 01/09/21 07:04 01/09/21 07:04 ABG ABG pH 7.461 (7.320-7.450) H 01/08/21 18:55 POC ABG pCO2 36.5 mmHg (32.0-48.0) 01/08/21 18:55 POC ABG pO2 70.2 mmHg (83-108) L 01/08/21 18:55 POC ABG HCO3 25.4 01/08/21 18:55 ABG O2 Saturation 94.6 (0-100) 01/08/21 18:55 PT/INR, D-dimer D-Dimer 724.01 ng/mlDDU (0-234) H 01/07/21 15:39 Abnormal lab findings: Abnormal Labs 01/07/21 01/07/21 01/07/21 13:19 14:14 14:14 WBC 12.6 H MCH Lymph % (Auto) Seg Neutrophils % 78.5 H Seg Neutrophils # 9.9 H D-Dimer ABG pH POC ABG pCO2 POC ABG pO2 ABG Oxyhemoglobin ABG Sodium ABG Potassium ABG Glucose Carboxyhemoglobin Sodium BUN 30 H Glucose 110 H POC Glucose 185 H Lactate Dehydrogenase C-Reactive Protein Albumin Arterial Blood Glucose 01/07/21 01/07/21 01/07/21 14:17 15:39 15:39 WBC MCH Lymph % (Auto) Seg Neutrophils % Seg Neutrophils # D-Dimer 724.01 H ABG pH 7.318 L POC ABG pCO2 54.5 H POC ABG pO2 52.5 L ABG Oxyhemoglobin 83.7 L ABG Sodium ABG Potassium 4.7 H ABG Glucose 120 H Carboxyhemoglobin 4.9 H Sodium BUN Glucose POC Glucose Lactate Dehydrogenase 252 H C-Reactive Protein 1.70 H Albumin Arterial Blood Glucose 120 H 01/07/21 01/08/21 01/08/21 22:55 07:49 08:32 WBC MCH 27 L Lymph % (Auto) Seg Neutrophils % 79.5 H Seg Neutrophils # 8.2 H D-Dimer ABG pH POC ABG pCO2 POC ABG pO2 ABG Oxyhemoglobin ABG Sodium ABG Potassium ABG Glucose Carboxyhemoglobin Sodium BUN Glucose POC Glucose 147 H 190 H Lactate Dehydrogenase C-Reactive Protein Albumin Arterial Blood Glucose 01/08/21 01/08/21 01/08/21 08:32 08:46 12:19 WBC MCH Lymph % (Auto) Seg Neutrophils % Seg Neutrophils # D-Dimer ABG pH POC ABG pCO2 POC ABG pO2 ABG Oxyhemoglobin ABG Sodium ABG Potassium ABG Glucose Carboxyhemoglobin Sodium 133 L BUN 25 H Glucose 176 H POC Glucose 189 H Lactate Dehydrogenase C-Reactive Protein Albumin 3.8 L Arterial Blood Glucose 01/08/21 01/08/21 01/08/21 16:57 18:55 23:07 WBC MCH Lymph % (Auto) Seg Neutrophils % Seg Neutrophils # D-Dimer ABG pH 7.461 H POC ABG pCO2 POC ABG pO2 70.2 L ABG Oxyhemoglobin 93.3 L ABG Sodium 134.7 L ABG Potassium ABG Glucose 207 H Carboxyhemoglobin Sodium BUN Glucose POC Glucose 192 H 187 H Lactate Dehydrogenase C-Reactive Protein Albumin Arterial Blood Glucose 207 H 01/09/21 01/09/21 01/09/21 07:04 07:04 07:58 WBC 12.9 H MCH Lymph % (Auto) 13.0 L Seg Neutrophils % 83.8 H Seg Neutrophils # 10.8 H D-Dimer ABG pH POC ABG pCO2 POC ABG pO2 ABG Oxyhemoglobin ABG Sodium ABG Potassium ABG Glucose Carboxyhemoglobin Sodium 136 L BUN 22 H Glucose 198 H POC Glucose 196 H Lactate Dehydrogenase C-Reactive Protein Albumin Arterial Blood Glucose 01/09/21 01/09/21 09:53 12:03 WBC MCH Lymph % (Auto) Seg Neutrophils % Seg Neutrophils # D-Dimer ABG pH POC ABG pCO2 POC ABG pO2 ABG Oxyhemoglobin ABG Sodium ABG Potassium ABG Glucose Carboxyhemoglobin Sodium BUN Glucose POC Glucose 209 H 216 H Lactate Dehydrogenase C-Reactive Protein Albumin Arterial Blood Glucose
[2021-01-09] MEDS: cefTRIAXone/NS 2 GM/100 ML 2 GM/100 ML BAG IV SCH (18:22)
[2021-01-09] MEDS: AZITHROMYCIN 250 MG TAB PO SCH (18:22)
--- NOTE | 2021-01-09 18:23 | Progress Note ---
Assessment and Plan Assessment and Plan Assessment and plan: --COVID-19 test negative -- Acute hypoxic , hypercapnic respiratory failure Current Visit: Yes Status: Acute Plan to address problem: Slow improvement --Acute metabolic encephalopathy Current Visit: Yes Status: Acute Plan to address problem: Patient still confused and not oriented CT scan negative --Obesity hypoventilation syndrome Current Visit: Yes Status: Acute Plan to address problem: Oxygen, titrate O2 sats to more than 90% Pulmonary consult, CPAP BiPAP at night/and as needed --Systemic inflammatory response syndrome Current Visit: Yes Status: Acute Plan to address problem: Empiric antibiotics, follow cultures -- Pneumonia right-sided Current Visit: Yes Status: Acute Plan to address problem: Continue empiric antibiotics, follow cultures Supportive care --DVT prophylaxis Current Visit: Yes Status: Acute Plan to address problem: SCD and heparin --Insulin-dependent diabetes Current Visit: Yes Status: Acute Plan to address problem: Adjust medications and insulin to higher dosage Subjective Date of service: 01/09/21 Principal diagnosis: Acute respiratory failure with hypoxia, acute encephalopathy Interval history: 65 YO Female with obesity hypoventilation syndrome, COPD, diabetes mellitus, hypertension, osteoarthritis, mild intermittent asthma presented to ED for evaluation. Patient is confused with diminished cognition and is unable to provide history. Patient history taken from EMS staff, ED staff, as well as patient family who was at bedside during exam and interview. As per family the patient has experienced increased confusion over the past 1 day with persistent symptoms over the same timeframe. EMS was notified and upon arrival the patient was found to be in distress and subsequently transported to [facility] for further care and evaluation of the aforementioned symptoms. The patient was seen and evaluated in the emergency department. All lab and imaging studies reviewed. The patient was found to have a pulse oximetry of 87% on room air which is consistent with acute hypoxemic respiratory failure. The patient was placed on supplemental oxygen with mild improvement in symptoms. Chest x-ray revealed bilateral pneumonia. Patient initiated on pneumonia protocol as well as coronavirus protocol in the emergency department. Patient found to have encephalopathy, systemic inflammatory response syndrome as well as super suspected coronavirus infection. Patient admitted to medical floor due to increased risk of worsening symptoms. No reports of fever, chills, chest pain, palpitations, productive cough, skin rash, recent ill contacts. Patient is fully vaccinated with [employer] vaccine for coronavirus. Patient is confused and lethargic at the time of my evaluation and is unable to provide history but has a positive gag reflex and is able to protect her airway without difficulty at this time. No prior admission for review. No medication listed at time of admission for reconciliation. Advanced care planning conducted in ED. 01/08/2021; patient is severely encephalopathic CT head negative, elevated D-dimers, DVT negative, check CTA chest Get her home medications list and resume Pulmonary consulted 01/09/2021 Patient is still confused and not oriented Still wheezing and short of breath Patient is neurochecks every 4 hours History Interval history: I have seen and examined the patient at the bedside this morning Patient's chart and medications reviewed Patient is severely confused, agitated Not communicating appropriately in mild distress Vital signs reviewed Objective - Constitutional Vitals: Vital Signs - 12hr 01/09/21 01/09/21 01/09/21 08:28 08:36 10:00 Temperature 99.0 F Pulse Rate Respiratory 18 18 Rate Blood Pressure 147/67 O2 Sat by Pulse 97 Oximetry 01/09/21 15:14 Temperature Pulse Rate 80 Respiratory Rate Blood Pressure 175/59 O2 Sat by Pulse Oximetry General appearance: Present: severe distress, well-nourished - EENT Eyes: PERRL, EOM intact ENT: hearing intact, clear oral mucosa Ears: bilateral: normal - Neck Neck: supple, normal ROM - Respiratory Respiratory effort: normal Respiratory: bilateral: diminished, rhonchi, wheezing - Breasts Breasts: normal - Cardiovascular Rhythm: regular Heart Sounds: Present: S1 & S2. Absent: gallop, rub Extremities: pulses intact, No edema, normal color, Full ROM - Gastrointestinal General gastrointestinal: Present: soft, non-tender, non-distended, normal bowel sounds - Genitourinary Female genitourinary: normal - Integumentary Integumentary: clear, warm, dry - Musculoskeletal Musculoskeletal: strength equal bilaterally, generalized weakness - Neurologic Neurologic: moves all extremities, other (Alert but confused and lethargic) - Psychiatric Psychiatric: memory intact, appropriate mood/affect, intact judgment & insight - Labs CBC & Chem 7: 01/09/21 07:04 01/09/21 07:04 Labs: Abnormal lab results 01/08/21 01/08/21 01/09/21 Range/Units 18:55 23:07 07:04 WBC 12.9 H (4.5-11.0) K/mm3 Lymph % (Auto) 13.0 L (13.4-35.0) % Seg Neutrophils % 83.8 H (40.0-70.0) % Seg Neutrophils # 10.8 H (1.8-7.7) K/mm3 ABG pH 7.461 H (7.320-7.450) POC ABG pO2 70.2 L (83-108) mmHg ABG Oxyhemoglobin 93.3 L (94-98) ABG Sodium 134.7 L (136.0-145.0) mmol/L ABG Glucose 207 H (65-95) mg/dL Sodium (137-145) mmol/L BUN (7-17) mg/dL Glucose (65-100) mg/dL POC Glucose 187 H (70-105) mg/dL Arterial Blood Glucose 207 H (65-95) mg/dL 01/09/21 01/09/21 01/09/21 Range/Units 07:04 07:58 09:53 WBC (4.5-11.0) K/mm3 Lymph % (Auto) (13.4-35.0) % Seg Neutrophils % (40.0-70.0) % Seg Neutrophils # (1.8-7.7) K/mm3 ABG pH (7.320-7.450) POC ABG pO2 (83-108) mmHg ABG Oxyhemoglobin (94-98) ABG Sodium (136.0-145.0) mmol/L ABG Glucose (65-95) mg/dL Sodium 136 L (137-145) mmol/L BUN 22 H (7-17) mg/dL Glucose 198 H (65-100) mg/dL POC Glucose 196 H 209 H (70-105) mg/dL Arterial Blood Glucose (65-95) mg/dL 01/09/21 Range/Units 12:03 WBC (4.5-11.0) K/mm3 Lymph % (Auto) (13.4-35.0) % Seg Neutrophils % (40.0-70.0) % Seg Neutrophils # (1.8-7.7) K/mm3 ABG pH (7.320-7.450) POC ABG pO2 (83-108) mmHg ABG Oxyhemoglobin (94-98) ABG Sodium (136.0-145.0) mmol/L ABG Glucose (65-95) mg/dL Sodium (137-145) mmol/L BUN (7-17) mg/dL Glucose (65-100) mg/dL POC Glucose 216 H (70-105) mg/dL Arterial Blood Glucose (65-95) mg/dL HEART Score - HEART Score Troponin: Troponin T < 0.010 ng/mL (0.00-0.029) 01/07/21 14:14
[2021-01-09] MEDS ORDERED: LORazepam 2 MG/ML VIAL IV PRN ×3 (19:22)
[2021-01-09 21:17] LABS: ABG Base Excess 2.4 mmol/L (-2.0-3.0); ABG HCO3 25.2 mmol/L (20.0-26.0); ABG Methemoglobin 0.4 % (0.0-1.5); ABG Oxygen Saturation 96.2 % (95.0-99.0); ABG PCO2 33.5 mm Hg; ABG PH 7.494 pH Units (7.350-7.450); ABG PO2 78.3 mm Hg (80.0-90.0)
--- NOTE | 2021-01-09 23:27 | Consultation ---
PULMONARY CONSULT NOTE CONSULTING PHYSICIAN: ____. REASON FOR CONSULTATION: Acute hypoxemic and hypercapnic respiratory failure. CHIEF COMPLAINT AND HISTORY OF PRESENT ILLNESS: The patient is a 65-year-old obese female with past medical history significant amongst other things for a diagnosis of chronic back pain as well as COPD, on home oxygen therapy at night, came into the Emergency Room with altered mental status. She apparently presented about 4:00 a.m. a couple of days ago, last known well time was the night before she went to bed that night. The patient reportedly is on chronic pain medication, hydrocodone 10/325 t.i.d. along with Neurontin. She states that patient's pain management physician restarted the patient on morphine b.i.d. recently. She also took some Ambien the night before presentation. In the Emergency Room, the patient was found to indeed be with altered mental status. She was evaluated, ultimately admitted to the medical floor with diagnosis to include an acute hypoxemic and hypercapnic respiratory failure as well as an acute encephalopathy. We are asked to assist with management. When I stopped by to see her, she was lying in bed, again delirious will be the best way to describe her. Do not have any history of vomiting or overt aspiration. The above is as much of the history of presentation as I have. With regards to her tobacco use/smoking history, the records mention she is a nonsmoker. PAST MEDICAL HISTORY: 1. Obesity hypoventilation syndrome. 2. COPD. 3. Diabetes. 4. Hypertension. 5. Osteoarthritis. 6. Mild intermittent asthma. 7. She is morbidly obese. PAST SURGICAL HISTORY: Unknown. MEDICATIONS: She was on at the time I stopped by to see her were reviewed, pertinent medications include the following: Tylenol 650 mg p.o. q. 4 hours p.r.n. mild pain or fevers, albuterol 2.5 mg nebulized q. 6 hours p.r.n. shortness of breath, vitamin C 500 mg p.o. b.i.d., azithromycin 500 mg p.o. daily, Rocephin 2 g IV daily, vitamin D3 1000 units p.o. daily, Pepcid 20 mg p.o. b.i.d., Haldol 2 mg IM q. 6 hours p.r.n. agitation, heparin 5000 units subcutaneous q. 8 hours, hydralazine 50 mg p.o. q. 8 hours, insulin via sliding scale, and she is also on Solu-Medrol 40 mg IV q. 8 hours, Zofran 4 mg IV q. 8 hours p.r.n. nausea and vomiting, and zinc sulfate 220 mg p.o. b.i.d. ALLERGIES: No known drug allergies. DIET: Morbidly obese, acute weight loss or gain history is unknown. FAMILY AND SOCIAL HISTORY: Lives in the community. She is . There is a family history of diabetes and hypertension. In the ER, it seems like the family denied tobacco, alcohol or illicit drug use or abuse. REVIEW OF SYSTEMS: Unobtainable secondary to patient's medical and mental condition. Since she has been here, no gross hematochezia or melena, no gross hematuria, no hematemesis, no hemoptysis, no witnessed seizures. Review of systems otherwise unobtainable or as in body of history above. PHYSICAL EXAMINATION: VITAL SIGNS: At presentation in the Emergency Room, she was afebrile, temperature 98.1 degrees Fahrenheit, pulse of 75, respiratory rate of 18, blood pressure 179/54, O2 sats were 100%, inspired oxygen concentration at that time was not recorded. When I stopped by to see her, her O2 sats were 96% on room air. GENERAL: She is an elderly looking, morbidly obese female, normocephalic, atraumatic, resting in bed with normal respiratory effort at rest. HEAD, EYES, EARS, NOSE AND THROAT: Anicteric. No conjunctival erythema. Oropharynx was moist. She appears to have high Mallampati score, difficult to examine. No gross jugular venous distention. She does have a large neck circumference. Grossly, there were no palpable lymph nodes in the supraclavicular or submandibular lymph node chains. LUNGS: Auscultation of both lung herrera significant only for diminished bilateral breath sounds, slightly prolonged expiratory phase; however, clear otherwise. HEART: Heart sounds 1 and 2 are heard at the time of my evaluation, regular rate and rhythm without overt rubs or murmurs. ABDOMEN: Soft, full, protuberant. Bowel sounds are positive, nontender, no palpable hepatosplenomegaly. EXTREMITIES: Without overt digital clubbing or cyanosis. No pedal edema. Pedal pulses are 2+ bilaterally. NEUROLOGIC: Pupils are equal, round, about 4 mm, reactive to light. Extraocular muscle movements were intact. She moves all 4 extremities spontaneously. SKIN: Normal turgor in the areas examined without overt cellulitis or rash. Please see the wound care nurse's notes for full description of her skin. PSYCHIATRIC: Mood and affect could not be assessed. She was delirious. LABORATORY DATA: From my review are as follows: Admission white cell count 12,600, hemoglobin 12.5, hematocrit 39.1, platelet count 228. No manual differential. D-dimer was elevated at 724. Venous blood gas showed a pH of 7.32, pCO2 of 55, pO2 of 53 that was on room air. Serum sodium was 138, potassium 4.9, chloride 102, bicarbonate 24, BUN 30, creatinine 1.1, glucose was 110. Ferritin within normal limits. LDH 252. Troponin within normal limits. CRP slightly elevated at 1.7. Procalcitonin within normal limits. Urinalysis was negative for nitrites and leukocyte esterase. Coronavirus PCR has come back negative. Two sets of blood cultures are no growth to date. She did have a chest x-ray. I have reviewed it and I have also reviewed the radiologist's interpretation. There is gross cardiomegaly, somewhat underpenetrated was suggestion of a right lower lobe/right perihilar infiltrate. I cannot rule out small bilateral pleural effusions, no gross pneumothorax, no gross bony fractures. A CT scan of her head was also done. I have reviewed the interpretation, there is no acute intracranial abnormality. Bilateral lower extremity Dopplers were done, no evidence of DVT. CT angio was also done. I have reviewed the images as well as the radiologist's interpretation, not the best contrast phase timing and really in my opinion an equivocal study. The lung windows, some ground-glass opacification in the upper lobes in particular, upper lobe predominant emphysematous changes and some mild interstitial disease suggested in the right upper lobe in particular some areas of bronchiectasis and scarring. There is some motion artifact and as mentioned, areas of ground-glass opacification in both lung herrera. There is also some mediastinal and hilar adenopathy that is reported, some shotty pretracheal nodes, no real subcarinal adenopathy, it is difficult to have perhaps some perihilar adenopathy. ASSESSMENT: 1. Acute hypoxemic and hypercapnic respiratory failure, likely on chronic. 2. Bilateral pneumonia, community acquired. 3. Possible interstitial lung disease. 4. Acute exacerbation of chronic obstructive pulmonary disease. 5. Morbid obesity. 6. Acute toxic metabolic encephalopathy. 7. Possible alcohol withdrawal syndrome. 8. Systemic inflammatory response syndrome. 9. Person under investigation for COVID-19 infection. PLAN: I do think that we should broaden the differential to include possible alcohol withdrawal. For that reason, a CIWA protocol will be ordered. I will also empirically begin her on bilevel positive air pressure ventilation therapy, scheduled at bedtime. I will go empirically with 14/10 and a backup rate of 12 and use p.r.n. during the day. Aspiration precautions will be maintained, head of bed greater than or equal to about 40 degrees. I will repeat the arterial blood gas now to better evaluate her ventilatory status. Oxygen will be weaned to keep sats greater than or equal to about 90%. We will complete 5 days of community-acquired pneumonia therapy. Thankfully, COVID-19 test is negative. I will send MANISH level as a screen for connective tissue disease related interstitial lung disease. I will also send an [place] level. Systemic steroids will be continued at the current dose. She is appropriately on GI and DVT prophylaxis. Consideration will be given for a V/Q scan once she is more alert. Flu and pneumonia vaccination will be addressed per protocol. I will discontinue the vitamin C and zinc supplementation at this time with a negative COVID test. Flu and pneumonia vaccination will be addressed per protocol. Thank you very much for the consult. We will follow along and make further recommendations as picture progresses/becomes clearer. Magnesium and phosphorus levels will also be obtained both to optimize respiratory muscle function, but also to evaluate for possible signs of alcohol abuse. Thank you very much for the consult. We will follow along and make further recommendations as picture progresses/becomes clearer. JOB# [id number] EUGENE/XAVIER HORNE
[2021-01-10] MEDS: methylPREDNISolone Sod Succinate 40 MG/1 ML INJ IV SCH ×3 (06:51→22:01)
[2021-01-10] MEDS: hydrALAZINE 25 MG TAB PO SCH ×3 (08:31→22:00)
[2021-01-10] MEDS: FAMOTIDINE 20 MG TAB PO SCH ×2 (09:45→22:00)
[2021-01-10] MEDS: ASCORBIC ACID 500 MG TAB PO SCH ×2 (09:45→22:00)
[2021-01-10] MEDS: HEPARIN 5,000 UNIT/1 ML VIAL SUB-Q SCH ×2 (09:45→22:01)
[2021-01-10] MEDS: CHOLECALCIFEROL (VIT D3) 1000 UNIT (25 mcg) TAB PO SCH (09:45)
[2021-01-10] MEDS: ZINC SULFATE 220 MG CAP PO SCH ×2 (09:45→22:00)
[2021-01-10] MEDS: INSULIN LISPRO 100 UNIT/ML SUB-Q SCH ×3 (10:12→17:07)
--- NOTE | 2021-01-10 14:11 | Progress Note ---
Assessment and Plan Acute hypoxemic and hypercapnic respiratory failure, likely on chronic. Bilateral pneumonia, community acquired. Possible interstitial lung disease. Acute exacerbation of chronic obstructive pulmonary disease. Morbid obesity. Acute toxic metabolic encephalopathy. Possible alcohol withdrawal syndrome. Systemic inflammatory response syndrome. Person under investigation for COVID-19 infection - continue supplemental oxygen to keep O2 sats > 90% - bronchodilators (MKIAELA) with pulm hygiene per RT - continue systemic steroids with slow taper - complete empiric CAP AB's therapy - continue CIWA protocol and watch closely - avoid nephrotoxins, renally dose all medications - mobility protocols to prevent pressure ulcers - PT/OT as tolerated - Wound care per RN/WCT - accuchecks with glycemic control per SSI for target blood glucose < 180 mg/dL - Smoking cessation strongly counseled at the bedside - home oxygen evaluation at discharge - GI & VTE prophylaxis - Flu & pneumovax per protocol - Pulmonary out patient follow up for PFTs and optimization of respiratory status - prn analgesia per pain score - continue other care per attending / other consultants ... re-evaluate in am & prn Subjective Date of service: 01/10/21 Principal diagnosis: Ac hypoxemic and hypercapnic resp failure; CAP; AE-COPD; AMS Interval history: Patient is seen today for: Ac hypoxemic and hypercapnic resp failure; CAP; Possible interstitial lung disease; AE-COPD; Morbid obesity; Acute toxic metabolic encephalopathy; PUI COVID-19; SIRS Seen and examined at bedside; 24hour events reviewed; nursing and respiratory care staff consulted; no adverse overnight events reported to me; resting peacefully in bed; sitting up and being fed by RN; still somewhat delirious; No N/V/F/C Objective Vital Signs - 12hr 01/10/21 06:00 Temperature 98.1 F Pulse Rate 78 Respiratory 20 Rate Blood Pressure 115/70 [Right] O2 Sat by Pulse 78 L Oximetry Constitutional: no acute distress, other (elderly obese female with mildly increased respiratory effort at rest) Eyes: non-icteric ENT: oropharynx moist, other (large neck circumference) Neck: supple, no lymphadenopathy Effort: mildly labored Ascultation: Bilateral: diminished breath sounds, rhonchi (scant) Percussion: Bilateral: not dull Cardiovascular: regular rate and rhythm Gastrointestinal: normoactive bowel sounds, soft, non-tender, non-distended (protuberant) Integumentary: normal Extremities: no cyanosis, no edema, pulses normal, no ischemia or petechiae Neurologic: non-focal exam (grossly), pupils equal and round, CN II-XII normal, motor strength normal and Psychiatric: other (delirious) CBC and BMP: 01/09/21 07:04 01/09/21 07:04 ABG, PT/INR, D-dimer: ABG ABG pH 7.494 pH Units (7.350-7.450) H 01/09/21 20:50 POC ABG pCO2 36.5 mmHg (32.0-48.0) 01/08/21 18:55 ABG pCO2 33.5 mm Hg 01/09/21 20:50 POC ABG pO2 70.2 mmHg (83-108) L 01/08/21 18:55 ABG pO2 78.3 mm Hg (80.0-90.0) L 01/09/21 20:50 POC ABG HCO3 25.4 01/08/21 18:55 ABG O2 Saturation 96.2 % (95.0-99.0) 01/09/21 20:50 PT/INR, D-dimer D-Dimer 724.01 ng/mlDDU (0-234) H 01/07/21 15:39 Abnormal lab findings: Abnormal Labs 01/07/21 01/07/21 01/07/21 13:19 14:14 14:14 WBC 12.6 H MCH Lymph % (Auto) Seg Neutrophils % 78.5 H Seg Neutrophils # 9.9 H D-Dimer ABG pH POC ABG pCO2 POC ABG pO2 ABG pO2 ABG Oxyhemoglobin ABG Sodium ABG Potassium ABG Glucose Carboxyhemoglobin Sodium BUN 30 H Glucose 110 H POC Glucose 185 H Phosphorus Lactate Dehydrogenase C-Reactive Protein Albumin Arterial Blood Glucose 01/07/21 01/07/21 01/07/21 14:17 15:39 15:39 WBC MCH Lymph % (Auto) Seg Neutrophils % Seg Neutrophils # D-Dimer 724.01 H ABG pH 7.318 L POC ABG pCO2 54.5 H POC ABG pO2 52.5 L ABG pO2 ABG Oxyhemoglobin 83.7 L ABG Sodium ABG Potassium 4.7 H ABG Glucose 120 H Carboxyhemoglobin 4.9 H Sodium BUN Glucose POC Glucose Phosphorus Lactate Dehydrogenase 252 H C-Reactive Protein 1.70 H Albumin Arterial Blood Glucose 120 H 01/07/21 01/08/21 01/08/21 22:55 07:49 08:32 WBC MCH 27 L Lymph % (Auto) Seg Neutrophils % 79.5 H Seg Neutrophils # 8.2 H D-Dimer ABG pH POC ABG pCO2 POC ABG pO2 ABG pO2 ABG Oxyhemoglobin ABG Sodium ABG Potassium ABG Glucose Carboxyhemoglobin Sodium BUN Glucose POC Glucose 147 H 190 H Phosphorus Lactate Dehydrogenase C-Reactive Protein Albumin Arterial Blood Glucose 01/08/21 01/08/21 01/08/21 08:32 08:46 12:19 WBC MCH Lymph % (Auto) Seg Neutrophils % Seg Neutrophils # D-Dimer ABG pH POC ABG pCO2 POC ABG pO2 ABG pO2 ABG Oxyhemoglobin ABG Sodium ABG Potassium ABG Glucose Carboxyhemoglobin Sodium 133 L BUN 25 H Glucose 176 H POC Glucose 189 H Phosphorus Lactate Dehydrogenase C-Reactive Protein Albumin 3.8 L Arterial Blood Glucose 01/08/21 01/08/21 01/08/21 16:57 18:55 23:07 WBC MCH Lymph % (Auto) Seg Neutrophils % Seg Neutrophils # D-Dimer ABG pH 7.461 H POC ABG pCO2 POC ABG pO2 70.2 L ABG pO2 ABG Oxyhemoglobin 93.3 L ABG Sodium 134.7 L ABG Potassium ABG Glucose 207 H Carboxyhemoglobin Sodium BUN Glucose POC Glucose 192 H 187 H Phosphorus Lactate Dehydrogenase C-Reactive Protein Albumin Arterial Blood Glucose 207 H 01/09/21 01/09/21 01/09/21 07:04 07:04 07:58 WBC 12.9 H MCH Lymph % (Auto) 13.0 L Seg Neutrophils % 83.8 H Seg Neutrophils # 10.8 H D-Dimer ABG pH POC ABG pCO2 POC ABG pO2 ABG pO2 ABG Oxyhemoglobin ABG Sodium ABG Potassium ABG Glucose Carboxyhemoglobin Sodium 136 L BUN 22 H Glucose 198 H POC Glucose 196 H Phosphorus Lactate Dehydrogenase C-Reactive Protein Albumin Arterial Blood Glucose 01/09/21 01/09/21 01/09/21 09:53 12:03 16:57 WBC MCH Lymph % (Auto) Seg Neutrophils % Seg Neutrophils # D-Dimer ABG pH POC ABG pCO2 POC ABG pO2 ABG pO2 ABG Oxyhemoglobin ABG Sodium ABG Potassium ABG Glucose Carboxyhemoglobin Sodium BUN Glucose POC Glucose 209 H 216 H 107 H Phosphorus Lactate Dehydrogenase C-Reactive Protein Albumin Arterial Blood Glucose 01/09/21 01/09/21 01/09/21 20:50 22:52 22:58 WBC MCH Lymph % (Auto) Seg Neutrophils % Seg Neutrophils # D-Dimer ABG pH 7.494 H POC ABG pCO2 POC ABG pO2 ABG pO2 78.3 L ABG Oxyhemoglobin ABG Sodium ABG Potassium ABG Glucose Carboxyhemoglobin Sodium BUN Glucose POC Glucose 128 H Phosphorus 1.80 L Lactate Dehydrogenase C-Reactive Protein Albumin Arterial Blood Glucose 01/10/21 01/10/21 07:56 12:47 WBC MCH Lymph % (Auto) Seg Neutrophils % Seg Neutrophils # D-Dimer ABG pH POC ABG pCO2 POC ABG pO2 ABG pO2 ABG Oxyhemoglobin ABG Sodium ABG Potassium ABG Glucose Carboxyhemoglobin Sodium BUN Glucose POC Glucose 170 H 200 H Phosphorus Lactate Dehydrogenase C-Reactive Protein Albumin Arterial Blood Glucose Allied health notes reviewed: nursing
--- NOTE | 2021-01-10 15:51 | Progress Note ---
Assessment and Plan Assessment and Plan Assessment and plan: --COVID-19 test negative -- Acute hypoxic , hypercapnic respiratory failure Current Visit: Yes Status: Acute Plan to address problem: Continue supplemental oxygen, treat the underlying cause BiPAP as needed --Acute metabolic encephalopathy Current Visit: Yes Status: Acute Plan to address problem: Multifactorial, treat underlying cause Neurochecks and supportive care If no improvement in altered level of consciousness We will consult neurology, will get MRI --Obesity hypoventilation syndrome Current Visit: Yes Status: Acute Plan to address problem: Oxygen, titrate O2 sats to more than 90% Pulmonary consult, CPAP BiPAP at night/and as needed --Systemic inflammatory response syndrome Current Visit: Yes Status: Acute Plan to address problem: Empiric antibiotics, follow cultures -- Pneumonia right-sided Current Visit: Yes Status: Acute Plan to address problem: Continue empiric antibiotics, follow cultures Supportive care --DVT prophylaxis Current Visit: Yes Status: Acute Plan to address problem: SCD and heparin --Advance care planning Current Visit: Yes Status: Acute Plan to address problem: Plan of care reviewed with patient and her nurse Closely monitor the patient and adjust management as needed Subjective Date of service: 01/10/21 Principal diagnosis: Ac hypoxemic and hypercapnic resp failure; CAP; AE-COPD; AMS Objective - Constitutional Vitals: Vital Signs - 12hr 01/10/21 06:00 Temperature 98.1 F Pulse Rate 78 Respiratory 20 Rate Blood Pressure 115/70 [Right] O2 Sat by Pulse 78 L Oximetry - Labs CBC & Chem 7: 01/09/21 07:04 01/09/21 07:04 Labs: Abnormal lab results 01/09/21 01/09/21 01/09/21 Range/Units 16:57 20:50 22:52 ABG pH 7.494 H (7.350-7.450) pH Units ABG pO2 78.3 L (80.0-90.0) mm Hg POC Glucose 107 H 128 H (70-105) mg/dL Phosphorus (2.5-4.5) mg/dL 01/09/21 01/10/21 01/10/21 Range/Units 22:58 07:56 12:47 ABG pH (7.350-7.450) pH Units ABG pO2 (80.0-90.0) mm Hg POC Glucose 170 H 200 H (70-105) mg/dL Phosphorus 1.80 L (2.5-4.5) mg/dL HEART Score - HEART Score Troponin: Troponin T < 0.010 ng/mL (0.00-0.029) 01/07/21 14:14
[2021-01-10] MEDS: cefTRIAXone/NS 2 GM/100 ML 2 GM/100 ML BAG IV SCH (16:33)
[2021-01-10] MEDS: AZITHROMYCIN 250 MG TAB PO SCH (18:34)
[2021-01-10] MEDS: hydrALAZINE 20 MG/1 ML INJ IV PRN (18:38)
[2021-01-11] MEDS: hydrALAZINE 20 MG/1 ML INJ IV PRN (06:26)
[2021-01-11] MEDS: methylPREDNISolone Sod Succinate 40 MG/1 ML INJ IV SCH ×3 (06:26→21:21)
[2021-01-11] MEDS: hydrALAZINE 25 MG TAB PO SCH ×3 (06:26→21:30)
[2021-01-11] MEDS: INSULIN LISPRO 100 UNIT/ML SUB-Q SCH ×6 (08:00→23:45)
[2021-01-11] MEDS: ZINC SULFATE 220 MG CAP PO SCH ×2 (10:34→21:34)
[2021-01-11] MEDS: FAMOTIDINE 20 MG TAB PO SCH ×2 (10:34→21:21)
[2021-01-11] MEDS: CHOLECALCIFEROL (VIT D3) 1000 UNIT (25 mcg) TAB PO SCH (10:34)
[2021-01-11] MEDS: HEPARIN 5,000 UNIT/1 ML VIAL SUB-Q SCH ×2 (10:34→21:34)
[2021-01-11] MEDS: ASCORBIC ACID 500 MG TAB PO SCH ×2 (10:34→21:22)
--- NOTE | 2021-01-11 12:11 | Progress Note ---
Assessment and Plan Acute hypoxemic and hypercapnic respiratory failure, likely on chronic. Bilateral pneumonia, community acquired. Possible interstitial lung disease. Acute exacerbation of chronic obstructive pulmonary disease. Morbid obesity. Acute toxic metabolic encephalopathy. Possible alcohol withdrawal syndrome. Systemic inflammatory response syndrome. Person under investigation for COVID-19 infection - incontinence work-up - no new issues otherwise, continue care as below; - continue supplemental oxygen to keep O2 sats > 90% - bronchodilators (MIKAELA) with pulm hygiene per RT - continue systemic steroids with slow taper - complete empiric CAP AB's therapy - continue CIWA protocol and watch closely - avoid nephrotoxins, renally dose all medications - mobility protocols to prevent pressure ulcers - PT/OT as tolerated - Wound care per RN/WCT - accuchecks with glycemic control per SSI for target blood glucose < 180 mg/dL - Smoking cessation strongly counseled at the bedside - home oxygen evaluation at discharge - GI & VTE prophylaxis - Flu & pneumovax per protocol - Pulmonary out patient follow up for PFTs and optimization of respiratory status - prn analgesia per pain score - continue other care per attending / other consultants ... re-evaluate in am & prn Subjective Date of service: 01/11/21 Principal diagnosis: Ac hypoxemic and hypercapnic resp failure; CAP; AE-COPD; AMS Interval history: Patient is seen today for: Ac hypoxemic and hypercapnic resp failure; CAP; Possible interstitial lung disease; AE-COPD; Morbid obesity; Acute toxic metabolic encephalopathy; PUI COVID-19; SIRS Seen and examined at bedside; 24hour events reviewed; nursing and respiratory care staff consulted; no adverse overnight events reported to me; resting peacefully in bed; more alert; + incontinence reported; no N/V Objective Vital Signs - 12hr 01/11/21 01/11/21 01/11/21 02:30 05:38 06:26 Temperature 98.8 F Pulse Rate 97 H 99 H 99 H Respiratory 25 H 20 Rate Blood Pressure 197/96 197/96 O2 Sat by Pulse 97 99 Oximetry Constitutional: no acute distress, other (elderly obese female without increased respiratory effort at rest) Eyes: non-icteric ENT: oropharynx moist, other (large neck circumference) Neck: supple, no lymphadenopathy Effort: mildly labored Ascultation: Bilateral: diminished breath sounds, rhonchi (scant) Percussion: Bilateral: not dull Cardiovascular: regular rate and rhythm Gastrointestinal: normoactive bowel sounds, soft, non-tender, non-distended (protuberant) Integumentary: normal Extremities: no cyanosis, no edema, pulses normal, no ischemia or petechiae Neurologic: non-focal exam (grossly), pupils equal and round, CN II-XII normal, motor strength normal and Psychiatric: mood appropriate, affect normal CBC and BMP: 01/09/21 07:04 01/09/21 07:04 ABG, PT/INR, D-dimer: ABG ABG pH 7.494 pH Units (7.350-7.450) H 01/09/21 20:50 POC ABG pCO2 36.5 mmHg (32.0-48.0) 01/08/21 18:55 ABG pCO2 33.5 mm Hg 01/09/21 20:50 POC ABG pO2 70.2 mmHg (83-108) L 01/08/21 18:55 ABG pO2 78.3 mm Hg (80.0-90.0) L 01/09/21 20:50 POC ABG HCO3 25.4 01/08/21 18:55 ABG O2 Saturation 96.2 % (95.0-99.0) 01/09/21 20:50 PT/INR, D-dimer D-Dimer 724.01 ng/mlDDU (0-234) H 01/07/21 15:39 Abnormal lab findings: Abnormal Labs 01/07/21 01/07/21 01/07/21 13:19 14:14 14:14 WBC 12.6 H MCH Lymph % (Auto) Seg Neutrophils % 78.5 H Seg Neutrophils # 9.9 H D-Dimer ABG pH POC ABG pCO2 POC ABG pO2 ABG pO2 ABG Oxyhemoglobin ABG Sodium ABG Potassium ABG Glucose Carboxyhemoglobin Sodium BUN 30 H Glucose 110 H POC Glucose 185 H Phosphorus Lactate Dehydrogenase C-Reactive Protein Albumin Arterial Blood Glucose 01/07/21 01/07/21 01/07/21 14:17 15:39 15:39 WBC MCH Lymph % (Auto) Seg Neutrophils % Seg Neutrophils # D-Dimer 724.01 H ABG pH 7.318 L POC ABG pCO2 54.5 H POC ABG pO2 52.5 L ABG pO2 ABG Oxyhemoglobin 83.7 L ABG Sodium ABG Potassium 4.7 H ABG Glucose 120 H Carboxyhemoglobin 4.9 H Sodium BUN Glucose POC Glucose Phosphorus Lactate Dehydrogenase 252 H C-Reactive Protein 1.70 H Albumin Arterial Blood Glucose 120 H 01/07/21 01/08/21 01/08/21 22:55 07:49 08:32 WBC MCH 27 L Lymph % (Auto) Seg Neutrophils % 79.5 H Seg Neutrophils # 8.2 H D-Dimer ABG pH POC ABG pCO2 POC ABG pO2 ABG pO2 ABG Oxyhemoglobin ABG Sodium ABG Potassium ABG Glucose Carboxyhemoglobin Sodium BUN Glucose POC Glucose 147 H 190 H Phosphorus Lactate Dehydrogenase C-Reactive Protein Albumin Arterial Blood Glucose 01/08/21 01/08/21 01/08/21 08:32 08:46 12:19 WBC MCH Lymph % (Auto) Seg Neutrophils % Seg Neutrophils # D-Dimer ABG pH POC ABG pCO2 POC ABG pO2 ABG pO2 ABG Oxyhemoglobin ABG Sodium ABG Potassium ABG Glucose Carboxyhemoglobin Sodium 133 L BUN 25 H Glucose 176 H POC Glucose 189 H Phosphorus Lactate Dehydrogenase C-Reactive Protein Albumin 3.8 L Arterial Blood Glucose 01/08/21 01/08/21 01/08/21 16:57 18:55 23:07 WBC MCH Lymph % (Auto) Seg Neutrophils % Seg Neutrophils # D-Dimer ABG pH 7.461 H POC ABG pCO2 POC ABG pO2 70.2 L ABG pO2 ABG Oxyhemoglobin 93.3 L ABG Sodium 134.7 L ABG Potassium ABG Glucose 207 H Carboxyhemoglobin Sodium BUN Glucose POC Glucose 192 H 187 H Phosphorus Lactate Dehydrogenase C-Reactive Protein Albumin Arterial Blood Glucose 207 H 01/09/21 01/09/21 01/09/21 07:04 07:04 07:58 WBC 12.9 H MCH Lymph % (Auto) 13.0 L Seg Neutrophils % 83.8 H Seg Neutrophils # 10.8 H D-Dimer ABG pH POC ABG pCO2 POC ABG pO2 ABG pO2 ABG Oxyhemoglobin ABG Sodium ABG Potassium ABG Glucose Carboxyhemoglobin Sodium 136 L BUN 22 H Glucose 198 H POC Glucose 196 H Phosphorus Lactate Dehydrogenase C-Reactive Protein Albumin Arterial Blood Glucose 01/09/21 01/09/21 01/09/21 09:53 12:03 16:57 WBC MCH Lymph % (Auto) Seg Neutrophils % Seg Neutrophils # D-Dimer ABG pH POC ABG pCO2 POC ABG pO2 ABG pO2 ABG Oxyhemoglobin ABG Sodium ABG Potassium ABG Glucose Carboxyhemoglobin Sodium BUN Glucose POC Glucose 209 H 216 H 107 H Phosphorus Lactate Dehydrogenase C-Reactive Protein Albumin Arterial Blood Glucose 01/09/21 01/09/21 01/09/21 20:50 22:52 22:58 WBC MCH Lymph % (Auto) Seg Neutrophils % Seg Neutrophils # D-Dimer ABG pH 7.494 H POC ABG pCO2 POC ABG pO2 ABG pO2 78.3 L ABG Oxyhemoglobin ABG Sodium ABG Potassium ABG Glucose Carboxyhemoglobin Sodium BUN Glucose POC Glucose 128 H Phosphorus 1.80 L Lactate Dehydrogenase C-Reactive Protein Albumin Arterial Blood Glucose 01/10/21 01/10/21 01/10/21 07:56 12:47 16:53 WBC MCH Lymph % (Auto) Seg Neutrophils % Seg Neutrophils # D-Dimer ABG pH POC ABG pCO2 POC ABG pO2 ABG pO2 ABG Oxyhemoglobin ABG Sodium ABG Potassium ABG Glucose Carboxyhemoglobin Sodium BUN Glucose POC Glucose 170 H 200 H 183 H Phosphorus Lactate Dehydrogenase C-Reactive Protein Albumin Arterial Blood Glucose 01/10/21 01/11/21 22:12 08:14 WBC MCH Lymph % (Auto) Seg Neutrophils % Seg Neutrophils # D-Dimer ABG pH POC ABG pCO2 POC ABG pO2 ABG pO2 ABG Oxyhemoglobin ABG Sodium ABG Potassium ABG Glucose Carboxyhemoglobin Sodium BUN Glucose POC Glucose 161 H 214 H Phosphorus Lactate Dehydrogenase C-Reactive Protein Albumin Arterial Blood Glucose Allied health notes reviewed: nursing
--- NOTE | 2021-01-11 14:36 | Progress Note ---
Assessment and Plan Assessment and Plan Assessment and plan: --COVID-19 test negative -- Acute hypoxic , hypercapnic respiratory failure Current Visit: Yes Status: Acute Plan to address problem: Continue supplemental oxygen, treat the underlying cause BiPAP as needed --Acute metabolic encephalopathy Current Visit: Yes Status: Acute Plan to address problem: Multifactorial, treat underlying cause Neurochecks and supportive care If no improvement in altered level of consciousness We will consult neurology, will get MRI --Obesity hypoventilation syndrome Current Visit: Yes Status: Acute Plan to address problem: Oxygen, titrate O2 sats to more than 90% Pulmonary consult, CPAP BiPAP at night/and as needed --Systemic inflammatory response syndrome Current Visit: Yes Status: Acute Plan to address problem: Empiric antibiotics, follow cultures -- Pneumonia right-sided Current Visit: Yes Status: Acute Plan to address problem: Continue empiric antibiotics, follow cultures Supportive care --DVT prophylaxis Current Visit: Yes Status: Acute Plan to address problem: SCD and heparin --Advance care planning Current Visit: Yes Status: Acute Plan to address problem: Plan of care reviewed with patient and her nurse Closely monitor the patient and adjust management as needed Subjective Date of service: 01/11/21 Principal diagnosis: Ac hypoxemic and hypercapnic resp failure; CAP; AE-COPD; AMS Objective - Constitutional Vitals: Vital Signs - 12hr 01/11/21 01/11/21 01/11/21 05:38 05:46 06:26 Temperature 98.8 F 97.8 F Pulse Rate 99 H 109 H 99 H Respiratory 20 20 Rate Blood Pressure 197/96 142/93 197/96 O2 Sat by Pulse 99 100 Oximetry 01/11/21 01/11/21 10:00 13:17 Temperature 100.0 F H Pulse Rate 116 H Respiratory 20 Rate Blood Pressure 138/61 O2 Sat by Pulse 97 95 Oximetry General appearance: Present: no acute distress, well-nourished - EENT Eyes: PERRL, EOM intact ENT: hearing intact, clear oral mucosa Ears: bilateral: normal - Neck Neck: supple, normal ROM - Respiratory Respiratory effort: normal Respiratory: bilateral: CTA - Breasts Breasts: normal - Cardiovascular Rhythm: regular Heart Sounds: Present: S1 & S2. Absent: gallop, rub Extremities: pulses intact, No edema, normal color, Full ROM - Gastrointestinal General gastrointestinal: Present: soft, non-tender, non-distended, normal bowel sounds - Genitourinary Female genitourinary: normal - Integumentary Integumentary: clear, warm, dry - Musculoskeletal Musculoskeletal: 1, strength equal bilaterally - Neurologic Neurologic: moves all extremities - Psychiatric Psychiatric: memory intact, appropriate mood/affect, intact judgment & insight - Labs CBC & Chem 7: 01/09/21 07:04 01/09/21 07:04 Labs: Abnormal lab results 01/10/21 01/10/21 01/11/21 Range/Units 16:53 22:12 08:14 POC Glucose 183 H 161 H 214 H (70-105) mg/dL HEART Score - HEART Score Troponin: Troponin T < 0.010 ng/mL (0.00-0.029) 01/07/21 14:14
--- NOTE | 2021-01-11 14:54 | Progress Note ---
Assessment and Plan Assessment and Plan Assessment and plan: --COVID-19 test negative -- Acute hypoxic , hypercapnic respiratory failure Current Visit: Yes Status: Acute Plan to address problem: Improving He still wheezing --Acute metabolic encephalopathy Current Visit: Yes Status: Acute Plan to address problem: Still very confused Possible hypercapnia Imaging studies are negative --Obesity hypoventilation syndrome Current Visit: Yes Status: Acute Plan to address problem: On minimal oxygen CPAP BiPAP at night/and as needed --Systemic inflammatory response syndrome Current Visit: Yes Status: Acute Plan to address problem: Improving -- Pneumonia right-sided Current Visit: Yes Status: Acute Plan to address problem: Continue empiric antibiotics, follow cultures Supportive care --DVT prophylaxis Current Visit: Yes Status: Acute Plan to address problem: SCD and heparin --Insulin-dependent diabetes Adjust insulin Subjective Date of service: 01/10/21 Principal diagnosis: Acute respiratory failure with hypoxia, acute encephalopathy Interval history: 65 YO Female with obesity hypoventilation syndrome, COPD, diabetes mellitus, hypertension, osteoarthritis, mild intermittent asthma presented to ED for evaluation. Patient is confused with diminished cognition and is unable to provide history. Patient history taken from EMS staff, ED staff, as well as patient family who was at bedside during exam and interview. As per family the patient has experienced increased confusion over the past 1 day with persistent symptoms over the same timeframe. EMS was notified and upon arrival the patient was found to be in distress and subsequently transported to [facility] for further care and evaluation of the aforementioned symptoms. The patient was seen and evaluated in the emergency department. All lab and imaging studies reviewed. The patient was found to have a pulse oximetry of 87% on room air which is consistent with acute hypoxemic respiratory failure. The patient was placed on supplemental oxygen with mild improvement in symptoms. Chest x-ray revealed bilateral pneumonia. Patient initiated on pneumonia protocol as well as coronavirus protocol in the emergency department. Patient found to have encephalopathy, systemic inflammatory response syndrome as well as super suspected coronavirus infection. Patient admitted to medical floor due to increased risk of worsening symptoms. No reports of fever, chills, chest pain, palpitations, productive cough, skin rash, recent ill contacts. Patient is fully vaccinated with [employer] vaccine for coronavirus. Patient is confused and lethargic at the time of my evaluation and is unable to provide history but has a positive gag reflex and is able to protect her airway without difficulty at this time. No prior admission for review. No medication listed at time of admission for reconciliation. Advanced care planning conducted in ED. 01/08/2021; patient is severely encephalopathic CT head negative, elevated D-dimers, DVT negative, check CTA chest Get her home medications list and resume Pulmonary consulted 01/09/2021 Patient is still confused and not oriented Still wheezing and short of breath Patient is neurochecks every 4 hours 01/10/2021 Patient still confused and curled up Alert but not oriented Very lethargic Mild respiratory distress History Interval history: I have seen and examined the patient at the bedside this morning Patient's chart and medications reviewed Patient is severely confused, agitated Not communicating appropriately in mild distress Vital signs reviewed Objective - Constitutional Vitals: Vital Signs - 12hr 01/11/21 01/11/21 01/11/21 05:38 05:46 06:26 Temperature 98.8 F 97.8 F Pulse Rate 99 H 109 H 99 H Respiratory 20 20 Rate Blood Pressure 197/96 142/93 197/96 O2 Sat by Pulse 99 100 Oximetry 01/11/21 01/11/21 10:00 13:17 Temperature 100.0 F H Pulse Rate 116 H Respiratory 20 Rate Blood Pressure 138/61 O2 Sat by Pulse 97 95 Oximetry General appearance: Present: mild distress, well-nourished - EENT Eyes: PERRL, EOM intact ENT: hearing intact, clear oral mucosa Ears: bilateral: normal - Neck Neck: supple, normal ROM - Respiratory Respiratory effort: normal Respiratory: bilateral: diminished, rhonchi, wheezing - Breasts Breasts: normal - Cardiovascular Heart rate: 78 Rhythm: regular Heart Sounds: Present: S1 & S2. Absent: gallop, rub Extremities: pulses intact, No edema, normal color, Full ROM - Gastrointestinal General gastrointestinal: Present: soft, non-tender, non-distended, normal bowel sounds - Genitourinary Female genitourinary: normal - Integumentary Integumentary: clear, warm, dry - Musculoskeletal Musculoskeletal: generalized weakness - Neurologic Neurologic: moves all extremities, other (Alert but not oriented and very lethargic) - Psychiatric Psychiatric: memory intact, appropriate mood/affect, intact judgment & insight - Labs CBC & Chem 7: 01/09/21 07:04 01/09/21 07:04 Labs: Abnormal lab results 01/10/21 01/10/21 01/11/21 Range/Units 16:53 22:12 08:14 POC Glucose 183 H 161 H 214 H (70-105) mg/dL HEART Score - HEART Score Troponin: Troponin T < 0.010 ng/mL (0.00-0.029) 01/07/21 14:14
--- NOTE | 2021-01-11 15:02 | Progress Note ---
Assessment and Plan Assessment and Plan Assessment and plan: --COVID-19 test negative -- Acute hypoxic , hypercapnic respiratory failure Current Visit: Yes Status: Acute Plan to address problem: Improving He still wheezing --Acute metabolic encephalopathy Current Visit: Yes Status: Acute Plan to address problem: Improved Patient at baseline-very alert and oriented Neurochecks discontinued --Obesity hypoventilation syndrome Current Visit: Yes Status: Acute Plan to address problem: On room air --Systemic inflammatory response syndrome Current Visit: Yes Status: Acute Plan to address problem: Improving -- Pneumonia right-sided Current Visit: Yes Status: Acute Plan to address problem: Continue empiric antibiotics, follow cultures Supportive care --DVT prophylaxis Current Visit: Yes Status: Acute Plan to address problem: SCD and heparin --Insulin-dependent diabetes Adjust insulin Fecal incontinence Will observe May be one-time episode Discharge planning Possible discharge tomorrow Subjective Date of service: 01/11/21 Principal diagnosis: Acute respiratory failure with hypoxia, acute encephalopathy Interval history: 65 YO Female with obesity hypoventilation syndrome, COPD, diabetes mellitus, hypertension, osteoarthritis, mild intermittent asthma presented to ED for evaluation. Patient is confused with diminished cognition and is unable to provide history. Patient history taken from EMS staff, ED staff, as well as patient family who was at bedside during exam and interview. As per family the patient has experienced increased confusion over the past 1 day with persistent symptoms over the same timeframe. EMS was notified and upon arrival the patient was found to be in distress and subsequently transported to [facility] for further care and evaluation of the aforementioned symptoms. The patient was seen and evaluated in the emergency department. All lab and imaging studies reviewed. The patient was found to have a pulse oximetry of 87% on room air which is consistent with acute hypoxemic respiratory failure. The patient was placed on supplemental oxygen with mild improvement in symptoms. Chest x-ray revealed bilateral pneumonia. Patient initiated on pneumonia protocol as well as coronavirus protocol in the emergency department. Patient found to have encephalopathy, systemic inflammatory response syndrome as well as super suspected coronavirus infection. Patient admitted to medical floor due to increased risk of worsening symptoms. No reports of fever, chills, chest pain, palpitations, productive cough, skin rash, recent ill contacts. Patient is fully vaccinated with [employer] vaccine for coronavirus. Patient is confused and lethargic at the time of my evaluation and is unable to provide history but has a positive gag reflex and is able to protect her airway without difficulty at this time. No prior admission for review. No medication listed at time of admission for reconciliation. Advanced care planning conducted in ED. 01/08/2021; patient is severely encephalopathic CT head negative, elevated D-dimers, DVT negative, check CTA chest Get her home medications list and resume Pulmonary consulted 01/09/2021 Patient is still confused and not oriented Still wheezing and short of breath Patient is neurochecks every 4 hours 01/10/2021 Patient still confused and curled up Alert but not oriented Very lethargic Mild respiratory distress 01/11/2021 Patient very alert and oriented today Wants to go home Patient had a one episode of defecating on herself and urinary incontinence today Will evaluate the fecal incontinence Discussed with daughter at length and she wants the fecal incontinence to be addressed Patient daughter is willing to take her home back tomorrow if the all the problems resolved. History Interval history: I have seen and examined the patient at the bedside this morning Patient's chart and medications reviewed Patient is severely confused, agitated Not communicating appropriately in mild distress Vital signs reviewed Objective - Constitutional Vitals: Vital Signs - 12hr 01/11/21 01/11/21 01/11/21 05:38 05:46 06:26 Temperature 98.8 F 97.8 F Pulse Rate 99 H 109 H 99 H Respiratory 20 20 Rate Blood Pressure 197/96 142/93 197/96 O2 Sat by Pulse 99 100 Oximetry 01/11/21 01/11/21 10:00 13:17 Temperature 100.0 F H Pulse Rate 116 H Respiratory 20 Rate Blood Pressure 138/61 O2 Sat by Pulse 97 95 Oximetry General appearance: Present: no acute distress, well-nourished - EENT Eyes: PERRL, EOM intact ENT: hearing intact, clear oral mucosa Ears: bilateral: normal - Neck Neck: supple, normal ROM - Respiratory Respiratory effort: normal Respiratory: bilateral: CTA - Breasts Breasts: normal - Cardiovascular Rhythm: regular Heart Sounds: Present: S1 & S2. Absent: gallop, rub Extremities: pulses intact, No edema, normal color, Full ROM - Gastrointestinal General gastrointestinal: Present: soft, non-tender, non-distended, normal bowel sounds - Genitourinary Female genitourinary: normal - Integumentary Integumentary: clear, warm, dry - Musculoskeletal Musculoskeletal: 1, strength equal bilaterally - Neurologic Neurologic: moves all extremities - Psychiatric Psychiatric: memory intact, appropriate mood/affect, intact judgment & insight - Labs CBC & Chem 7: 01/09/21 07:04 01/09/21 07:04 Labs: Abnormal lab results 01/10/21 01/10/21 01/11/21 Range/Units 16:53 22:12 08:14 POC Glucose 183 H 161 H 214 H (70-105) mg/dL HEART Score - HEART Score Troponin: Troponin T < 0.010 ng/mL (0.00-0.029) 01/07/21 14:14
[2021-01-11] MEDS: cefTRIAXone/NS 2 GM/100 ML 2 GM/100 ML BAG IV SCH (17:29)
[2021-01-11] MEDS: AZITHROMYCIN 250 MG TAB PO SCH (17:29)
[2021-01-11] MEDS: INSULIN NPH/REGULAR 70/30 INJ SUB-Q SCH (18:37)
[2021-01-12] MEDS: hydrALAZINE 25 MG TAB PO SCH ×2 (05:38→15:59)
[2021-01-12 05:39] VITALS: BP 147/80
[2021-01-12] MEDS: methylPREDNISolone Sod Succinate 40 MG/1 ML INJ IV SCH (06:48)
[2021-01-12] MEDS: INSULIN LISPRO 100 UNIT/ML SUB-Q SCH (08:03)
[2021-01-12] MEDS: INSULIN NPH/REGULAR 70/30 INJ SUB-Q SCH (09:01)
[2021-01-12] MEDS: ZINC SULFATE 220 MG CAP PO SCH (10:00)
[2021-01-12] MEDS: ASCORBIC ACID 500 MG TAB PO SCH (11:00)
[2021-01-12] MEDS: FAMOTIDINE 20 MG TAB PO SCH (11:00)
[2021-01-12] MEDS: CHOLECALCIFEROL (VIT D3) 1000 UNIT (25 mcg) TAB PO SCH (11:01)
[2021-01-12] MEDS: HEPARIN 5,000 UNIT/1 ML VIAL SUB-Q SCH (11:01)
--- NOTE | 2021-01-12 12:47 | Progress Note ---
Assessment and Plan Acute hypoxemic and hypercapnic respiratory failure, likely on chronic. Bilateral pneumonia, community acquired. Possible interstitial lung disease. Acute exacerbation of chronic obstructive pulmonary disease. Morbid obesity. Acute toxic metabolic encephalopathy. Possible alcohol withdrawal syndrome. Systemic inflammatory response syndrome. Person under investigation for COVID-19 infection - incontinence work-up - no new issues otherwise, continue care as below; - continue supplemental oxygen to keep O2 sats > 90% - bronchodilators (MIKAELA) with pulm hygiene per RT - continue systemic steroids with slow taper - complete empiric CAP AB's therapy - continue CIWA protocol and watch closely - avoid nephrotoxins, renally dose all medications - mobility protocols to prevent pressure ulcers - PT/OT as tolerated - Wound care per RN/WCT - accuchecks with glycemic control per SSI for target blood glucose < 180 mg/dL - Smoking cessation strongly counseled at the bedside - home oxygen evaluation at discharge - GI & VTE prophylaxis - Flu & pneumovax per protocol - Pulmonary out patient follow up for PFTs and optimization of respiratory status - prn analgesia per pain score - continue other care per attending / other consultants ... re-evaluate in am & prn Subjective Date of service: 01/12/21 Principal diagnosis: Ac hypoxemic and hypercapnic resp failure; CAP; AE-COPD; AMS Interval history: Patient is seen today for: Ac hypoxemic and hypercapnic resp failure; CAP; Possible interstitial lung disease; AE-COPD; Morbid obesity; Acute toxic metabolic encephalopathy; PUI COVID-19; SIRS Seen and examined at bedside; 24hour events reviewed; nursing and respiratory care staff consulted; no adverse overnight events reported to me; resting peacefully in bed; Objective Vital Signs - 12hr 01/12/21 01/12/21 05:26 05:38 Temperature 98.2 F Pulse Rate 96 H 82 Respiratory 20 Rate Blood Pressure 183/82 147/80 O2 Sat by Pulse 96 Oximetry Constitutional: no acute distress, other (elderly obese female without increased respiratory effort at rest) Eyes: non-icteric ENT: oropharynx moist, other (large neck circumference) Neck: supple, no lymphadenopathy Effort: mildly labored Ascultation: Bilateral: diminished breath sounds, rhonchi (scant) Percussion: Bilateral: not dull Cardiovascular: regular rate and rhythm Gastrointestinal: normoactive bowel sounds, soft, non-tender, non-distended (protuberant) Integumentary: normal Extremities: no cyanosis, no edema, pulses normal, no ischemia or petechiae Neurologic: non-focal exam (grossly), pupils equal and round, CN II-XII normal, motor strength normal and Psychiatric: mood appropriate, affect normal CBC and BMP: 01/09/21 07:04 01/09/21 07:04 ABG, PT/INR, D-dimer: ABG ABG pH 7.494 pH Units (7.350-7.450) H 01/09/21 20:50 POC ABG pCO2 36.5 mmHg (32.0-48.0) 01/08/21 18:55 ABG pCO2 33.5 mm Hg 01/09/21 20:50 POC ABG pO2 70.2 mmHg (83-108) L 01/08/21 18:55 ABG pO2 78.3 mm Hg (80.0-90.0) L 01/09/21 20:50 POC ABG HCO3 25.4 01/08/21 18:55 ABG O2 Saturation 96.2 % (95.0-99.0) 01/09/21 20:50 PT/INR, D-dimer D-Dimer 724.01 ng/mlDDU (0-234) H 01/07/21 15:39 Abnormal lab findings: Abnormal Labs 01/07/21 01/07/21 01/07/21 13:19 14:14 14:14 WBC 12.6 H MCH Lymph % (Auto) Seg Neutrophils % 78.5 H Seg Neutrophils # 9.9 H D-Dimer ABG pH POC ABG pCO2 POC ABG pO2 ABG pO2 ABG Oxyhemoglobin ABG Sodium ABG Potassium ABG Glucose Carboxyhemoglobin Sodium BUN 30 H Glucose 110 H POC Glucose 185 H Phosphorus Lactate Dehydrogenase C-Reactive Protein Albumin Arterial Blood Glucose 01/07/21 01/07/21 01/07/21 14:17 15:39 15:39 WBC MCH Lymph % (Auto) Seg Neutrophils % Seg Neutrophils # D-Dimer 724.01 H ABG pH 7.318 L POC ABG pCO2 54.5 H POC ABG pO2 52.5 L ABG pO2 ABG Oxyhemoglobin 83.7 L ABG Sodium ABG Potassium 4.7 H ABG Glucose 120 H Carboxyhemoglobin 4.9 H Sodium BUN Glucose POC Glucose Phosphorus Lactate Dehydrogenase 252 H C-Reactive Protein 1.70 H Albumin Arterial Blood Glucose 120 H 01/07/21 01/08/21 01/08/21 22:55 07:49 08:32 WBC MCH 27 L Lymph % (Auto) Seg Neutrophils % 79.5 H Seg Neutrophils # 8.2 H D-Dimer ABG pH POC ABG pCO2 POC ABG pO2 ABG pO2 ABG Oxyhemoglobin ABG Sodium ABG Potassium ABG Glucose Carboxyhemoglobin Sodium BUN Glucose POC Glucose 147 H 190 H Phosphorus Lactate Dehydrogenase C-Reactive Protein Albumin Arterial Blood Glucose 01/08/21 01/08/21 01/08/21 08:32 08:46 12:19 WBC MCH Lymph % (Auto) Seg Neutrophils % Seg Neutrophils # D-Dimer ABG pH POC ABG pCO2 POC ABG pO2 ABG pO2 ABG Oxyhemoglobin ABG Sodium ABG Potassium ABG Glucose Carboxyhemoglobin Sodium 133 L BUN 25 H Glucose 176 H POC Glucose 189 H Phosphorus Lactate Dehydrogenase C-Reactive Protein Albumin 3.8 L Arterial Blood Glucose 01/08/21 01/08/21 01/08/21 16:57 18:55 23:07 WBC MCH Lymph % (Auto) Seg Neutrophils % Seg Neutrophils # D-Dimer ABG pH 7.461 H POC ABG pCO2 POC ABG pO2 70.2 L ABG pO2 ABG Oxyhemoglobin 93.3 L ABG Sodium 134.7 L ABG Potassium ABG Glucose 207 H Carboxyhemoglobin Sodium BUN Glucose POC Glucose 192 H 187 H Phosphorus Lactate Dehydrogenase C-Reactive Protein Albumin Arterial Blood Glucose 207 H 01/09/21 01/09/21 01/09/21 07:04 07:04 07:58 WBC 12.9 H MCH Lymph % (Auto) 13.0 L Seg Neutrophils % 83.8 H Seg Neutrophils # 10.8 H D-Dimer ABG pH POC ABG pCO2 POC ABG pO2 ABG pO2 ABG Oxyhemoglobin ABG Sodium ABG Potassium ABG Glucose Carboxyhemoglobin Sodium 136 L BUN 22 H Glucose 198 H POC Glucose 196 H Phosphorus Lactate Dehydrogenase C-Reactive Protein Albumin Arterial Blood Glucose 01/09/21 01/09/21 01/09/21 09:53 12:03 16:57 WBC MCH Lymph % (Auto) Seg Neutrophils % Seg Neutrophils # D-Dimer ABG pH POC ABG pCO2 POC ABG pO2 ABG pO2 ABG Oxyhemoglobin ABG Sodium ABG Potassium ABG Glucose Carboxyhemoglobin Sodium BUN Glucose POC Glucose 209 H 216 H 107 H Phosphorus Lactate Dehydrogenase C-Reactive Protein Albumin Arterial Blood Glucose 01/09/21 01/09/21 01/09/21 20:50 22:52 22:58 WBC MCH Lymph % (Auto) Seg Neutrophils % Seg Neutrophils # D-Dimer ABG pH 7.494 H POC ABG pCO2 POC ABG pO2 ABG pO2 78.3 L ABG Oxyhemoglobin ABG Sodium ABG Potassium ABG Glucose Carboxyhemoglobin Sodium BUN Glucose POC Glucose 128 H Phosphorus 1.80 L Lactate Dehydrogenase C-Reactive Protein Albumin Arterial Blood Glucose 01/10/21 01/10/21 01/10/21 07:56 12:47 16:53 WBC MCH Lymph % (Auto) Seg Neutrophils % Seg Neutrophils # D-Dimer ABG pH POC ABG pCO2 POC ABG pO2 ABG pO2 ABG Oxyhemoglobin ABG Sodium ABG Potassium ABG Glucose Carboxyhemoglobin Sodium BUN Glucose POC Glucose 170 H 200 H 183 H Phosphorus Lactate Dehydrogenase C-Reactive Protein Albumin Arterial Blood Glucose 01/10/21 01/11/21 01/11/21 22:12 08:14 12:15 WBC MCH Lymph % (Auto) Seg Neutrophils % Seg Neutrophils # D-Dimer ABG pH POC ABG pCO2 POC ABG pO2 ABG pO2 ABG Oxyhemoglobin ABG Sodium ABG Potassium ABG Glucose Carboxyhemoglobin Sodium BUN Glucose POC Glucose 161 H 214 H 417 H Phosphorus Lactate Dehydrogenase C-Reactive Protein Albumin Arterial Blood Glucose 01/11/21 01/11/21 01/11/21 14:48 16:38 22:59 WBC MCH Lymph % (Auto) Seg Neutrophils % Seg Neutrophils # D-Dimer ABG pH POC ABG pCO2 POC ABG pO2 ABG pO2 ABG Oxyhemoglobin ABG Sodium ABG Potassium ABG Glucose Carboxyhemoglobin Sodium BUN Glucose POC Glucose 315 H 288 H 293 H Phosphorus Lactate Dehydrogenase C-Reactive Protein Albumin Arterial Blood Glucose 01/12/21 07:58 WBC MCH Lymph % (Auto) Seg Neutrophils % Seg Neutrophils # D-Dimer ABG pH POC ABG pCO2 POC ABG pO2 ABG pO2 ABG Oxyhemoglobin ABG Sodium ABG Potassium ABG Glucose Carboxyhemoglobin Sodium BUN Glucose POC Glucose 174 H Phosphorus Lactate Dehydrogenase C-Reactive Protein Albumin Arterial Blood Glucose Allied health notes reviewed: nursing
--- NOTE | 2021-01-12 14:44 | Discharge Summary ---
Providers - Providers Date of Admission: 01/07/21 16:52 Date of discharge: 01/12/21 Attending physician: RACHEL ARTIS 01/08/21 06:50 Consult to Dietitian/Nutrition [CONS] Routine Physician Instructions: Reason For Exam: Reason for Consult: Pt needs oral supplement 01/08/21 06:51 Occupational Therapy Evaluate and Treat [CONS] Routine Comment: Reason For Exam: evaluation Physical Therapy Evaluation and Treat [CONS] Routine Comment: Reason For Exam: evaluation Speech Therapy Evaluation and Treat [CONS] Routine Reason For Exam: evaluation 01/08/21 17:45 Consult to Physician [CONS] Routine Comment: Consulting Provider: LIZBETH VILLEDA Physician Instructions: Reason For Exam: Hypoxic/hypercapnic resp failure/SULY/OHS Primary care physician: ADMINISTRATIVE SECRETARY Hospitalization Condition: Stable Hospital course: Subjective Date of service: 01/11/21 Principal diagnosis: Acute respiratory failure with hypoxia, acute encephalopathy Interval history: 65 YO Female with obesity hypoventilation syndrome, COPD, diabetes mellitus, hypertension, osteoarthritis, mild intermittent asthma presented to ED for evaluation. Patient is confused with diminished cognition and is unable to provide history. Patient history taken from EMS staff, ED staff, as well as patient family who was at bedside during exam and interview. As per family the patient has experienced increased confusion over the past 1 day with persistent symptoms over the same timeframe. EMS was notified and upon arrival the patient was found to be in distress and subsequently transported to [facility] for further care and evaluation of the aforementioned symptoms. The patient was seen and evaluated in the emergency department. All lab and imaging studies reviewed. The patient was found to have a pulse oximetry of 87% on room air which is consistent with acute hypoxemic respiratory failure. The patient was placed on supplemental oxygen with mild improvement in symptoms. Chest x-ray revealed bilateral pneumonia. Patient initiated on pneumonia protocol as well as c oronavirus protocol in the emergency department. Patient found to have encephalopathy, systemic inflammatory response syndrome as well as super suspected coronavirus infection. Patient admitted to medical floor due to increased risk of worsening symptoms. No reports of fever, chills, chest pain, palpitations, productive cough, skin rash, recent ill contacts. Patient is fully vaccinated with Pfizer vaccine for coronavirus. Patient is confused and lethargic at the time of my evaluation and is unable to provide history but has a positive gag reflex and is able to protect her airway without difficulty at this time. No prior admission for review. No medication listed at time of admission for reconciliation. Advanced care planning conducted in ED. 01/08/2021; patient is severely encephalopathic CT head negative, elevated D-dimers, DVT negative, check CTA chest Get her home medications list and resume Pulmonary consulted 01/09/2021 Patient is still confused and not oriented Still wheezing and short of breath Patient is neurochecks every 4 hours 01/10/2021 Patient still confused and curled up Alert but not oriented Very lethargic Mild respiratory distress 01/11/2021 Patient very alert and oriented today Wants to go home Patient had a one episode of defecating on herself and urinary incontinence today Will evaluate the fecal incontinence Discussed with daughter at length and she wants the fecal incontinence to be addressed Patient daughter is willing to take her home back tomorrow if the all the problems resolved. 01/12/2021 Patient doing well Walking without assistance Patient wants to go home with home physical therapy History Interval history: I have seen and examined the patient at the bedside this morning Patient's chart and medications reviewed Patient is severely confused, agitated Not communicating appropriately in mild distress Vital signs reviewed Assessment and Plan --COVID-19 test negative -- Acute hypoxic , hypercapnic respiratory failure Current Visit: Yes Status: Acute Plan to address problem: Improved --Acute metabolic encephalopathy Current Visit: Yes Status: Acute Plan to address problem: Improved Patient at baseline-very alert and oriented Neurochecks discontinued --Obesity hypoventilation syndrome Current Visit: Yes Status: Acute Plan to address problem: On room air Needs to lose weight --Systemic inflammatory response syndrome Current Visit: Yes Status: Acute Plan to address problem: Improving -- Pneumonia right-sided Current Visit: Yes Status: Acute Plan to address problem: Discharged home on oral antibiotics-Levaquin 750 daily for 7 days Tapering prednisone 10 mg 21 tablet Dosepak --DVT prophylaxis Current Visit: Yes Status: Acute Plan to address problem: SCD and heparin --Insulin-dependent diabetes Adjusted insulin Fecal incontinence One-time episode Discharge planning Discharge home today Disposition: TO HOME OR SELFCARE Final Discharge Diagnosis (Prints w/discharge instructions): Acute hypoxic hypercapnic respiratory failure. Acute metabolic encephalopathy. Obesity hypoventilation syndrome. Sirs. Pneumonia Time spent for discharge: 35 minutes - Discharge Diagnoses (1) Acute encephalopathy Status: Acute (2) Acute respiratory failure with hypoxia and hypercapnia Status: Acute (3) Obesity hypoventilation syndrome Status: Acute (4) Suspected COVID-19 virus infection Status: Acute (5) Systemic inflammatory response syndrome Status: Acute (6) DVT prophylaxis Status: Acute (7) Advance care planning Status: Acute Comment: Full code Core Measure Documentation - Palliative Care Palliative Care/ Comfort Measures: Not Applicable - Core Measures Any of the following diagnoses?: none Exam - Constitutional Vitals: Temp Pulse Resp BP Pulse Ox 98.2 F 82 20 147/80 96 01/12/21 05:26 01/12/21 05:38 01/12/21 05:26 01/12/21 05:38 01/12/21 05:26 General appearance: Present: no acute distress, well-nourished - EENT Eyes: Present: PERRL ENT: hearing intact, clear oral mucosa - Neck Neck: Present: supple, normal ROM - Respiratory Respiratory effort: normal Respiratory: bilateral: CTA - Cardiovascular Heart rate: 78 Rhythm: regular Heart Sounds: Present: S1 & S2. Absent: rub, click - Extremities Extremities: no ischemia, pulses intact, pulses symmetrical, No edema Peripheral Pulses: within normal limits - Abdominal General gastrointestinal: Present: soft, non-tender, non-distended, normal bowel sounds Female genitourinary: Present: normal - Rectal Rectal Exam: deferred - Integumentary Integumentary: Present: clear, warm, dry - Musculoskeletal Musculoskeletal: gait normal, strength equal bilaterally - Psychiatric Psychiatric: appropriate mood/affect, intact judgment & insight - Neurologic Neurologic: CNII-XII intact, moves all extremities - Allied Health Allied health notes reviewed: nursing, case management Plan Activity: no restrictions Diet: low salt, diabetic Follow up with: PRIMARY CARE, [Primary Care Provider] - 3-5 Days Prescriptions: hydrALAZINE [Apresoline TAB] 50 mg PO Q8HR #90 tablet levoFLOXacin [Levaquin] 750 mg PO QDAY #7 tablet Insulin NPH/Regular [NovoLIN 70/30] 30 unit SUB-Q BIDDIAB #2 vial Famotidine [Pepcid] 20 mg PO BID #60 tablet Prednisone [predniSONE 10 mg (6-Day Pack, 21 Tabs)] 10 mg PO .TAPER #1 tab.ds.pk Ascorbic Acid [Vitamin C] 500 mg PO BID #60 tablet Cholecalciferol Vit D3 [Vitamin D3 1,000 UNIT TAB] 1,000 unit PO QDAY #30 tablet
== END 2021-01-12 18:00 | disposition home health service (06) | DRG 193 ==
LOC: ED 12:49 → 3A 16:52
PROVIDERS: ADMIT Internal Medicine; ATTEND Internal Medicine
PROC: 4A033R1 Measurement of Arterial Saturation, Peripheral, Percutaneous Approach (ICD-10-PCS; 2021-01-07)
PROC: 5A09357 Assistance with Respiratory Ventilation, Less than 24 Consecutive Hours, Continuous Positive Airway Pressure (ICD-10-PCS; principal; 2021-01-09)
PROC: 5A09357 Assistance with Respiratory Ventilation, Less than 24 Consecutive Hours, Continuous Positive Airway Pressure (ICD-10-PCS; 2021-01-10)
PROC: 5A09357 Assistance with Respiratory Ventilation, Less than 24 Consecutive Hours, Continuous Positive Airway Pressure (ICD-10-PCS; 2021-01-11)
PROC: 5A09357 Assistance with Respiratory Ventilation, Less than 24 Consecutive Hours, Continuous Positive Airway Pressure (ICD-10-PCS; 2021-01-12)
DX: J18.9 Pneumonia, unspecified organism (principal); J96.01 Acute respiratory failure with hypoxia; J96.02 Acute respiratory failure with hypercapnia; G92 Toxic encephalopathy; E66.2 Morbid (severe) obesity with alveolar hypoventilation; Z68.41 Body mass index [BMI] 40.0-44.9, adult; J44.0 Chronic obstructive pulmonary disease with (acute) lower respiratory infection; R65.10 Systemic inflammatory response syndrome (SIRS) of non-infectious origin without acute organ dysfunction; J44.1 Chronic obstructive pulmonary disease with (acute) exacerbation; Z20.822 Contact with and (suspected) exposure to COVID-19; I10 Essential (primary) hypertension; E11.9 Type 2 diabetes mellitus without complications; M19.90 Unspecified osteoarthritis, unspecified site; Z87.891 Personal history of nicotine dependence; Z82.49 Family history of ischemic heart disease and other diseases of the circulatory system; Z83.3 Family history of diabetes mellitus; R15.9 Full incontinence of feces
CPT/HCPCS: 36415; 36600; 70450; 71045; 71275; 80048; 80076; 81001; 82164; 82728; 82803; 82805; 82962; 83615; 83735; 84100; 84145; 84484; 85025; 85379; 86038; 86140; 87040; 93005; 93970; 94640; 94644; 94660; 96374; 96375; G0378; J0360; J0456; J0696; J1100; J1630; J1644; J1815; J2310; J2920; Q9967; U0003